=== PATIENT | male | born 1935 | race Caucasian/White ===

== ENCOUNTER → 2017-01-10 | Outpatient (CLI) | payer BC, OTHER ==
[~2017-01-10] MED LIST: ACET-1256 PO; AMLO-114 PO; ASPI-321 OR; ATOR-24 PO; LISI1TAB3 PO; METF1000 PO; METO25TA31 PO; OMEP20TA PO; PRED1SUS OPL; VTMD1000 PO
[2017-01-10 13:39] LABS: ESTIMATED AVERAGE GLUCOSE 140 mg/dl; HA1C FLAG Normal (Normal)
[2017-01-10 13:44] LABS: ALT/SGPT 21 U/L (12-78); AST/SGOT 13 U/L (15-37); BLOOD UREA NITROGEN 16 mg/dl (7-18); BUN/CREATININE RATIO 11.7 (10-20); CARBON DIOXIDE 29 mmol/L (21-32); CHLORIDE 107 mmol/L (98-107); CHOLESTEROL 158 mg/dl (0-200); CHOLESTEROL/HDL RATIO 2.9; GLUCOSE 120 mg/dl (70-99); HDL CHOLESTEROL 55 mg/dl; POTASSIUM 4.4 mmol/L (3.5-5.1); SODIUM 142 mmol/L (136-145)
[2017-01-10 13:46] LABS: ALB/GLOB RATIO 1.1 (0.9-2); ALKALINE PHOSPHATASE 108 U/L (45-117); LDL CHOLESTEROL CALCULATED 75 mg/dl; TRIGLYCERIDES 138 mg/dl (0-150); VERY LOW DENSITY LIPOPROT CALC 28 mg/dl
== END | disposition home or self-care (01) ==
LOC: C.LABPVFM 10:03
PROVIDERS: ATTEND Family Medicine
DX: N18.9 Chronic kidney disease, unspecified (principal); E11.9 Type 2 diabetes mellitus without complications; E78.5 Hyperlipidemia, unspecified

== ENCOUNTER → 2017-03-03 | Outpatient (CLI) | payer BC ==
--- NOTE | 2017-03-03 15:27 | DIAGNOSTIC IMAGING REPORT ---
C-SPINE ROUTINE 4 OR 5 VIEWS CLINICAL HISTORY: Neck pain. Neuropathy. COMPARISON STUDY: No previous studies for comparison. FINDINGS: No acute fractures are visualized. There are advanced multilevel degenerative changes with multilevel disc space narrowing and osteophyte formation. There is minimal anterolisthesis of C4 on C5 which is felt to be degenerative. There is calcification within the ligamentum nuchae. There is bony foraminal encroachment on the right at the C4-5 and C5-6 levels. There is bony foraminal encroachment on the left at the C5-6 and C6-7 levels. IMPRESSION: 1. No acute fractures or traumatic subluxations 2. Advanced multilevel degenerative change Electronically signed by: Dany Bradley M.D. 03/03/2017 3:25 PM Dictated Date/Time: 03/03/2017 3:24 PM
== END | disposition home or self-care (01) ==
LOC: C.RAD 14:36
PROVIDERS: ATTEND Family Medicine
DX: G54.2 Cervical root disorders, not elsewhere classified (principal); M54.2 Cervicalgia

== ENCOUNTER → 2017-07-10 | Outpatient (CLI) | payer BC ==
[2017-07-10 18:24] LABS: ALT/SGPT 13 U/L (12-78); BLOOD UREA NITROGEN 13 mg/dl (7-18); BUN/CREATININE RATIO 9.7 (10-20); CALCIUM 9.2 mg/dl (8.5-10.1); CARBON DIOXIDE 30 mmol/L (21-32); CHLORIDE 107 mmol/L (98-107); CHOLESTEROL 123 mg/dl (0-200); GLUCOSE 103 mg/dl (70-99); POTASSIUM 4.5 mmol/L (3.5-5.1); SODIUM 140 mmol/L (136-145); TRIGLYCERIDES 105 mg/dl (0-150); VERY LOW DENSITY LIPOPROT CALC 21 mg/dl
[2017-07-10 18:27] LABS: ALKALINE PHOSPHATASE 134 U/L (45-117); AST/SGOT 14 U/L (15-37); CHOLESTEROL/HDL RATIO 2.3; HDL CHOLESTEROL 53 mg/dl; LDL CHOLESTEROL CALCULATED 49 mg/dl
[2017-07-11 05:39] LABS: ESTIMATED AVERAGE GLUCOSE 146 mg/dl; HA1C FLAG Normal (Normal)
== END | disposition home or self-care (01) ==
LOC: C.LABPVFM 11:30
PROVIDERS: ATTEND Family Medicine
DX: E78.5 Hyperlipidemia, unspecified (principal); N18.9 Chronic kidney disease, unspecified; E11.9 Type 2 diabetes mellitus without complications

== ENCOUNTER → 2017-12-29 | Outpatient (CLI) | payer BC ==
[2017-12-29 13:01] LABS: HEMOGLOBIN A1C 6.7 % (4.5-5.6)
[2017-12-29 13:14] LABS: ALBUMIN 3.3 gm/dl (3.4-5.0); ALKALINE PHOSPHATASE 127 U/L (45-117); ALT/SGPT 16 U/L (12-78); AST/SGOT 13 U/L (15-37); BLOOD UREA NITROGEN 17 mg/dl (7-18); CALCIUM 9.1 mg/dl (8.5-10.1); CARBON DIOXIDE 28 mmol/L (21-32); CHOLESTEROL 134 mg/dl (0-200); CREATININE 1.56 mg/dl (0.60-1.40); GLUCOSE 123 mg/dl (70-99); LDL CHOLESTEROL CALCULATED 64 mg/dl; SODIUM 140 mmol/L (136-145); TOTAL PROTEIN 6.9 gm/dl (6.4-8.2)
== END | disposition home or self-care (01) ==
LOC: C.LABPVFM 08:06
PROVIDERS: ATTEND Family Medicine
DX: I10 Essential (primary) hypertension (principal); E11.9 Type 2 diabetes mellitus without complications; E78.5 Hyperlipidemia, unspecified

== ENCOUNTER → 2018-05-04 | Outpatient (CLI) | payer BC ==
[~2018-05-04] MED LIST changes: -AMLO-114 PO; +AMLO10TA3 PO; +LISI-863 PO; -LISI1TAB3 PO
[2018-05-04 13:09] LABS: HEMOGLOBIN A1C 6.5 % (4.5-5.6)
[2018-05-04 13:24] LABS: ALBUMIN 3.4 gm/dl (3.4-5.0); ALKALINE PHOSPHATASE 117 U/L (45-117); ALT/SGPT 15 U/L (12-78); AST/SGOT 14 U/L (15-37); BLOOD UREA NITROGEN 16 mg/dl (7-18); CALCIUM 9.3 mg/dl (8.5-10.1); CARBON DIOXIDE 30 mmol/L (21-32); CHOLESTEROL 122 mg/dl (0-200); CREATININE 1.21 mg/dl (0.60-1.40); GLUCOSE 111 mg/dl (70-99); LDL CHOLESTEROL CALCULATED 57 mg/dl; SODIUM 142 mmol/L (136-145); TOTAL PROTEIN 7.1 gm/dl (6.4-8.2)
== END | disposition home or self-care (01) ==
LOC: C.LABPVFM 08:05
PROVIDERS: ATTEND Family Medicine
DX: H61.23 Impacted cerumen, bilateral (principal)

== ENCOUNTER 2020-09-14 20:41 | Inpatient (IN) ==
--- NOTE | 2020-09-14 20:58 | Emergency Department Note ---
Impression & Plan Pneumonia, COPD (chronic obstructive pulmonary disease), Hypoxemia ED Provider Note NAME: МАРИНА DAS AGE: 84 SEX: M : 1935 ARRIVES VIA: Walk-In INFORMANT: Patient, ED PROVIDER(S): Yimi Culp MD Chief Complaint: Weakness, cough, SOB HPI: Patient does present with the above complaints. The patient states that this is been ongoing since the end of August.Patient was seen in the outpatient setting back on September [address] Juares his PCP. Was suspected the patient did have a viral type illness Covid testing was offered but the patient refused. The patient had been not feeling well since August 30 with associated night sweats and a temperature of 102 on September 03. Patient states he has had a productive yellow sputum cough. The patient has had some worsening shortness of breath. Patient does have a known history of COPD and does still smoke a pipe but has not done so in approximately 2 weeks but did smoke a pipe on the way up this evening. The patient did have fevers initially but does state that this has improved. The patient denies any lower extremity swelling. The patient does have pain with cough. Patient states he has had had decreased appetite and p.o. intake. The patient denies any bowel or bladder issues. Patient denies prior history of DVT or PE ROS: See HPI for pertinent positives and negatives. A total of 10 systems were reviewed and otherwise negative. Past medical history: See below Surgical history: See below Social history: See below Physical Exam: GENERAL: Wearing glasses and a mask. EYE EXAM: Normal conjunctiva. PERRL, no anisocoria and EOM's grossly intact w/o pain. NECK: Supple, no nuchal rigidity, no adenopathy, non-tender. No signs of meningismus. LUNGS: Wheezes and crackles throughout. Normal chest wall mechanics. HEART: NSR, no MRG. ABDOMEN: Abdomen soft, non-tender, normo-active bowel sounds, no masses, no rebound or guarding. BACK: No CVA TTP. SKIN: No rashes and no bruising. UPPER EXTREMITIES: Upper extremities are grossly normal. LOWER EXTREMITIES: Grossly normal, no edema. NEURO EXAM: A&O x3, cranial nerves II-XII grossly intact, normal speech, moves all 4 extremities on command w/o issue. Differential diagnoses: Reactive airway disease, pneumonia, pneumothorax, COPD, CHF, infections, cardiac ischemia, pulmonary embolism, musculoskeletal, gastrointestinal, as well as other pathologies. Course: Patient was seen and evaluated the bedside. Full history physical exam was performed. EKG: Indication: Shortness of breath Normal sinus rhythm, rate of 76, wide QRS, right bundle branch block pattern. Imaging Studies: Radiology results as stated below per my review in the radiologist's interpretation: XR chest 1V portable CLINICAL HISTORY: weakness COMPARISON STUDY: 09/19/2009 FINDINGS: The heart is at the upper limits of normal in size. There are bilateral multifocal airspace opacities most pronounced within the left upper lung zone laterally. The findings are consistent with a multifocal pneumonia. Correlation with Covid 19 testing is recommended. There are no significant pleural effusions.[ IMPRESSION: Multifocal airspace opacities consistent with a multifocal pneumonia ACT 112: Negative or not required by law. Electronically signed by: Dany Bradley M.D. 09/15/2020 7:55 AM Dictated: 09/15/20 [id number]: 09/15/20 075 Cardiac monitoring: An order was placed for continuous cardiac monitoring. The monitor shows a rate of 67 with sinus rhythm. MDM: Patient was seen due to concern for shortness of breath and weakness. Blood work is obtained along with a chest x-ray. The patient did have white count of 14 productive cough history of COPD and likely full multifocal pneumonia seen on his x-ray. Patient was ordered additional medications along with treatment staff with his breathing as the patient did become hypoxic at 86%. Patient was placed on 2 L nasal cannula and was comfortable. Covid was negative. At the behest of the lab and inpatient team they recommend getting a quad screen. This was ordered. The patient's was Covid positive. Patient was admitted to the medicine service under Dr. Vargas. Critical Care: I have personally spent 52 minutes of critical care time in direct management of this patient. This includes bedside care, interpretation of diagnostic studies, and testing, discussion with consultants, patient, and family members, and other require inpatient management activities. This 52 minutes is in excess of all separately billable procedures. 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 @ cath 2009 Chronic obstructive pulmonary disease Chronic reflux esophagitis Dyslipidemia Elevated PSA Hypertension Impacted cerumen of both ears Neuropathy, cervical Surgical History History of cataract surgery (2016) bilateral History of tonsillectomy Family History Family/Other Esophageal cancer Hypertension Laryngeal cancer Brother Prostate cancer Father Prostate cancer Denies family history of Ovarian cancer Myocardial infarction Breast cancer Colorectal cancer Social History Smoking Status: Current every day smoker Hx Alcohol Use: No Hx Substance Use: No Preferred Language: Wolof Communication Ability: Effective 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 Verified 09/04/20 09:51 Home Meds Home Medications Medication Instructions Recorded Confirmed aspirin 81 mg tablet 81 mg PO DAILY tab 08/19/19 09/14/20 cholecalciferol (vitamin D3) 50 2,000 units PO DAILY cap 02/28/20 09/14/20 mcg (2,000 unit) capsule omeprazole 20 mg capsule,delayed 20 mg PO DAILY PRN cap 02/28/20 09/14/20 release Previous Rx's Medication Instructions Recorded metformin 1,000 mg tablet 1,000 mg PO BID #60 tab 12/16/19 amlodipine 10 mg tablet 10 mg PO DAILY #30 tab 02/05/20 metoprolol succinate 25 mg 25 mg PO BID #60 tab 02/18/20 tablet,extended release 24 hr losartan 100 1 tab PO DAILY #90 tab 02/28/20 mg-hydrochlorothiazide 25 mg tablet atorvastatin 40 mg tablet 40 mg PO DAILY #30 tab 05/27/20 Results & Data (ED) Vital Signs Vital Signs - 24 hr 09/14/20 20:43 09/14/20 22:49 09/14/20 23:26 Temperature 36.8 C Temperature Source Oral Pulse Rate 99 H Pulse Rate [Apical] 67 Respiratory Rate 18 18 Respiratory Depth Normal Blood Pressure 134/66 Blood Pressure [Left Arm] 161/87 H Blood Pressure Mean 88 Blood Pressure Mean [Left Arm] 111 Blood Pressure Position Lying Pulse Oximetry 90 98 97 Oxygen Delivery Method Room Air Nasal Cannula Nasal Cannula Oxygen Flow Rate 4 4 Sepsis Recent Fever Within 48 Hours No Sepsis New/Unexplained Change in Mental Status No Sepsis Action Taken by Nursing No Action Required Oxygen Flow Rate - Titration 4 Pulse Oximetry Post Tiitration 98 Home Medications Current Medication List: was personally reviewed by me Laboratory Data Attestation: I reviewed the patient's lab results. Result diagrams: 09/14/20 22:35 09/15/20 09:50 Lab Results 09/14/20 09/14/20 09/14/20 Range/Units 22:30 22:30 22:35 WBC 14.97 H (4.8-10.8) K/uL RBC 3.12 L (4.7-6.1) M/uL Hgb 9.7 L (14.0-18.0) g/dL Hct 28.9 L (42-52) % MCV 92.6 (80-100) fL MCH 31.1 (25-34) pg MCHC 33.6 (32-36) g/dL RDW Std Deviation 42.9 (36.4-46.3) fL RDW Coeff of Dean 12.8 (11.5-14.5) % Plt Count 544 H (130-400) K/uL MPV 9.2 (7.4-10.4) fL Immature Gran % (Auto) 0.7 % Neut % (Auto) 85.5 % Lymph % (Auto) 6.1 % [place] % (Auto) 7.5 % Eos % (Auto) 0.0 % Baso % (Auto) 0.2 % Neut # (Auto) 12.80 H (1.4-6.5) K/uL Lymph # (Auto) 0.92 L (1.2-3.4) K/uL [place] # (Auto) 1.12 H (0.11-0.59) K/uL Eos # (Auto) 0.00 (0-0.5) K/uL Baso # (Auto) 0.03 (0-0.2) K/uL Immature Gran # (Auto) 0.10 H (0.00-0.02) K/uL PT (9.0-12.0) Seconds INR (0.9-1.1) Sodium (136-145) mmol/L Potassium (3.5-5.1) mmol/L Chloride (98-107) mmol/L Carbon Dioxide (21-32) mmol/L Anion Gap (3-11) BUN (7-18) mg/dl Creatinine (0.6-1.4) mg/dl Est Cr Clr Drug Dosing ml/min Est GFR ( Amer) Est GFR (Non-Af Amer) BUN/Creatinine Ratio (10-20) Glucose (70-99) mg/dl Calcium (8.5-10.1) mg/dl Total Bilirubin (0.2-1) mg/dl AST (15-37) U/L ALT (12-78) U/L Alkaline Phosphatase (45-117) U/L Troponin I (0-0.045) ng/ml Total Protein (6.4-8.2) gm/dl Albumin (3.4-5.0) gm/dl Globulin (2.5-4.0) gm/dl Albumin/Globulin Ratio (0.9-2) Procalcitonin (0-0.5) ng/ml TSH (0.300-4.500) uIu/ml Specimen Hemolysis COVID-19 Eval Order Covid19 [facility] SARS-CoV-2, RNA, NAAT NEGATIVE (NEGATIVE) 09/14/20 09/14/20 09/14/20 Range/Units 22:35 22:35 22:35 WBC (4.8-10.8) K/uL RBC (4.7-6.1) M/uL Hgb (14.0-18.0) g/dL Hct (42-52) % MCV (80-100) fL MCH (25-34) pg MCHC (32-36) g/dL RDW Std Deviation (36.4-46.3) fL RDW Coeff of Dean (11.5-14.5) % Plt Count (130-400) K/uL MPV (7.4-10.4) fL Immature Gran % (Auto) % Neut % (Auto) % Lymph % (Auto) % [place] % (Auto) % Eos % (Auto) % Baso % (Auto) % Neut # (Auto) (1.4-6.5) K/uL Lymph # (Auto) (1.2-3.4) K/uL [place] # (Auto) (0.11-0.59) K/uL Eos # (Auto) (0-0.5) K/uL Baso # (Auto) (0-0.2) K/uL Immature Gran # (Auto) (0.00-0.02) K/uL PT 12.8 H (9.0-12.0) Seconds INR 1.2 H (0.9-1.1) Sodium 140 (136-145) mmol/L Potassium 3.3 L (3.5-5.1) mmol/L Chloride 105 (98-107) mmol/L Carbon Dioxide 26 (21-32) mmol/L Anion Gap 9.0 (3-11) BUN 32 H (7-18) mg/dl Creatinine 1.64 H (0.6-1.4) mg/dl Est Cr Clr Drug Dosing 29.0 ml/min Est GFR ( Amer) 44.2 Est GFR (Non-Af Amer) 38.1 BUN/Creatinine Ratio 19.3 (10-20) Glucose 137 H (70-99) mg/dl Calcium 8.8 (8.5-10.1) mg/dl Total Bilirubin 0.4 (0.2-1) mg/dl AST 31 (15-37) U/L ALT 17 (12-78) U/L Alkaline Phosphatase 101 (45-117) U/L Troponin I 0.045 (0-0.045) ng/ml Total Protein 7.1 (6.4-8.2) gm/dl Albumin 1.9 L (3.4-5.0) gm/dl Globulin 5.2 H (2.5-4.0) gm/dl Albumin/Globulin Ratio 0.4 L (0.9-2) Procalcitonin 0.37 (0-0.5) ng/ml TSH 0.316 (0.300-4.500) uIu/ml Specimen Hemolysis COVID-19 Eval Order SARS-CoV-2, RNA, NAAT (NEGATIVE) Administered Medications Albuterol (Albuterol Hfa 8 Gm Inhaler (Combivent Respimat P&T Subs)) 1 puffs INH QIDR RAE Stop: 10/15/20 06:59 Last Admin: 09/15/20 15:46 Dose: Not Given Documented by: [id number] Admin: 09/15/20 11:33 Dose: 1 puffs Documented by: [id number] Admin: 09/15/20 07:43 Dose: 1 puffs Documented by: [id number] Amlodipine Besylate (Amlodipine Besylate 5 Mg Tab) 10 mg PO DAILY RAE Stop: 10/15/20 08:59 Last Admin: 09/15/20 08:46 Dose: 10 mg Documented by: [id number] Aspirin (Aspirin 81 Mg Ectab) 81 mg PO DAILY RAE Stop: 10/15/20 08:59 Last Admin: 09/15/20 08:44 Dose: 81 mg Documented by: [id number] Atorvastatin Calcium (Atorvastatin 40 Mg Tab) 40 mg PO DAILY RAE Stop: 10/15/20 08:59 Last Admin: 09/15/20 08:44 Dose: 40 mg Documented by: [id number] Enoxaparin Sodium (Enoxaparin Inj 30 Mg/0.3 Ml Syr) 30 mg SQ Q24H RAE Stop: 10/15/20 07:59 Last Admin: 09/15/20 07:59 Dose: 30 mg Documented by: [id number] Guaifenesin (Guaifenesin 600 Mg Tabcr) 1,200 mg PO Q12 RAE Stop: 10/15/20 08:59 Last Admin: 09/15/20 08:44 Dose: 1,200 mg Documented by: [id number] Lactated Ringer's (Lr) 1,000 mls @ 80 mls/hr IV .[id number] RAE Stop: 09/16/20 04:05 Last Infusion: 09/15/20 14:58 Dose: 0 mls/hr Documented by: [id number] Admin: 09/15/20 04:14 Dose: 80 mls/hr Documented by: [id number] Dexamethasone Sodium Phosphate (6 mg/ Syringe) 1.5 mls @ 1 mls/min IV DAILY RAE Stop: 10/15/20 08:59 Last Admin: 09/15/20 08:43 Dose: 1 mls/min Documented by: [id number] Insulin Aspart (Insulin Aspart 100 Units/Ml 3 Ml Pen) 0 units SC ACHS RAE Stop: 10/15/20 07:29 Last Admin: 09/15/20 11:36 Dose: 12 units Documented by: [id number] Cosigned by: [id number] Admin: 09/15/20 07:45 Dose: 3 units Documented by: [id number] Cosigned by: [id number] Ipratropium [place] (Ipratropium Hfa Inhaler (Combivent Respimat P&T Subs)) 1 puffs INH QIDR RAE Stop: 10/15/20 06:59 Last Admin: 09/15/20 15:46 Dose: Not Given Documented by: [id number] Admin: 09/15/20 11:32 Dose: 1 puffs Documented by: [id number] Admin: 09/15/20 07:43 Dose: 1 puffs Documented by: [id number] Metoprolol Succinate (Metoprolol Succ 25mg Ext Rel Tab) 25 mg PO BID RAE Stop: 10/15/20 08:59 Last Admin: 09/15/20 08:45 Dose: 25 mg Documented by: [id number] Vitamin D (Cholecalciferol 1,000 Units 25 Mcg Tab) 2,000 units PO DAILY RAE Stop: 10/15/20 08:59 Last Admin: 09/15/20 08:46 Dose: 2,000 units Documented by: [id number] Discontinued Medications Acetaminophen (Acetaminophen 325 Mg Tab) 650 mg PO NOW STA Stop: 09/14/20 21:04 Last Admin: 09/14/20 22:48 Dose: 650 mg Documented by: [id number] Azithromycin (Azithromycin 250 Mg Tab) 500 mg PO NOW ONE Stop: 09/14/20 23:24 Last Admin: 09/15/20 01:00 Dose: 500 mg Documented by: [id number] Sodium Chloride (Nss) 500 mls @ 999 mls/hr IV .Q31M RAE Stop: 09/14/20 21:45 Last Infusion: 09/15/20 02:36 Dose: 0 mls/hr Documented by: [id number] Admin: 09/14/20 22:48 Dose: 999 mls/hr Documented by: [id number] Ceftriaxone Sodium (Rocephin) 2,000 mg in 70 mls @ 140 mls/hr IV NOW STA Stop: 09/14/20 23:52 Last Infusion: 09/15/20 02:37 Dose: 0 mls/hr Documented by: [id number] Admin: 09/15/20 00:30 Dose: 140 mls/hr Documented by: [id number] Magnesium Sulfate/Dextrose (Magnesium Sulfate / D5w) 1 gm in 100 mls @ 200 mls/hr IV NOW STA Stop: 09/14/20 23:53 Last Infusion: 09/15/20 03:04 Dose: 0 mls/hr Documented by: [id number] Admin: 09/15/20 02:30 Dose: 200 mls/hr Documented by: [id number] Insulin Human NPH (Insulin Human Nph) 20 units SC NOW STA Stop: 09/15/20 13:48 Last Admin: 09/15/20 14:31 Dose: 20 units Documented by: [id number] Cosigned by: [id number] Ioversol (Optiray 320 125ml) 119 ml IV ONCE ONE Stop: 09/15/20 15:39 Last Admin: 09/15/20 15:39 Dose: 119 ml Documented by: [id number] Methylprednisolone (Methylprednisolone 125 Mg/2 Ml Vial) 60 mg IV NOW STA Stop: 09/14/20 23:24 Last Admin: 09/15/20 01:00 Dose: 60 mg Documented by: [id number] Miscellaneous Information (Pharmacy Glycemic Mgmt Consult) 1 ea N/A NOW STA; Protocol Stop: 09/15/20 11:05 Last Admin: 09/15/20 11:48 Dose: 1 ea Documented by: [id number] Potassium Chloride (Potassium Chloride Crtab 20 Meq Tabcr) 20 meq PO NOW STA Stop: 09/15/20 03:07 Last Admin: 09/15/20 04:14 Dose: 20 meq Documented by: [id number] Discharge Plan Visit Data Chief Complaint: Shortness of Breath/Dyspnea Stated Complaint: SOB, LOSS OF TASTE/SMELL, FEVER ED Provider: Yimi Culp Discharge Problem: Pneumonia, COPD (chronic obstructive pulmonary disease), Hypoxemia Patient Disposition: Admitted As Inpatient Discharge Instructions Interventions: ED Discharge Assessment Last Done: 09/15/20 12:19 Discharge Problem: Pneumonia Qualifiers: Pneumonia type: due to unspecified organism Laterality: bilateral Lung location: unspecified part of lung Qualified Code(s): J18.9 - Pneumonia, unspecified organism COPD (chronic obstructive pulmonary disease) Qualifiers: COPD type: COPD with acute exacerbation Qualified Code(s): J44.1 - Chronic obst ructive pulmonary disease with (acute) exacerbation
[2020-09-14] MEDS ORDERED: ACETAMINOPHEN 325 MG TAB PO STA (21:03)
[2020-09-14] MEDS ORDERED: SODIUM CHLORIDE 0.9% 500 ML IV SCH (21:15)
[2020-09-14 22:58] LABS: Basophils # (auto) 0.03 K/uL (0-0.2); Basophils % (auto) 0.2 %; Hematocrit (blood only) 28.9 % (42-52); Hemoglobin 9.7 g/dL (14.0-18.0); Immature Granulocytes % (auto) 0.7 %; Lymphocytes # (auto) 0.92 K/uL (1.2-3.4); Lymphocytes % (auto) 6.1 %; Mean Corpuscular Hemoglobin 31.1 pg (25-34); Mean Corpuscular Hgb Conc 33.6 g/dL (32-36); Mean Corpuscular Volume 92.6 fL (80-100); Mean Platelet Volume 9.2 fL (7.4-10.4); Monocytes # (auto) 1.12 K/uL (0.11-0.59); Monocytes % (auto) 7.5 %; Neutrophils % (auto) 85.5 %; Platelet Count 544 K/uL (130-400); RDW Coefficient of Variation 12.8 % (11.5-14.5); RDW Standard Deviation 42.9 fL (36.4-46.3); Red Blood Count 3.12 M/uL (4.7-6.1); White Blood Count 14.97 K/uL (4.8-10.8)
[2020-09-14 23:07] LABS: INR 1.2 (0.9-1.1); Prothrombin Time 12.8 Seconds (9.0-12.0)
[2020-09-14 23:16] LABS: Albumin Level 1.9 gm/dl (3.4-5.0); BUN Creatinine Ratio 19.3 (10-20); Calcium 8.8 mg/dl (8.5-10.1); Est GFR (African American) 44.2; Est GFR (Non-African American) 38.1; Potassium 3.3 mmol/L (3.5-5.1)
[2020-09-14] MEDS ORDERED: AZITHROMYCIN 250 MG TAB PO ONE (23:23)
[2020-09-14] MEDS ORDERED: methylPREDNISolone 125 MG/2 ML VIAL IV STA (23:23)
[2020-09-14] MEDS ORDERED: cefTRIAXone SODIUM 2,000 MG/70 ML BAG IV STA (23:23)
[2020-09-14] MEDS ORDERED: MAGNESIUM SULFATE / D5W 1 GM/100 ML BAG IV STA (23:24)
[2020-09-14 23:29] LABS: Albumin Globulin Ratio 0.4 (0.9-2); Bilirubin,Total 0.4 mg/dl (0.2-1); Globulin 5.2 gm/dl (2.5-4.0); Thyroid Stimulating Hormone 0.316 uIu/ml (0.300-4.500); Total Protein 7.1 gm/dl (6.4-8.2); Troponin I 0.045 ng/ml (0-0.045)
--- NOTE | 2020-09-15 01:10 | History & Physical Report ---
Date of Service September 15, 2020 Assessment & Plan (1) COVID-19: 84yo C male presenting with 2-3 weeks of weakness/fatigue and SOB as well as loss of taste and smell. Patient's is in the ER with similar complaints and has tested positive for Covid-19. Patient's SARS-CoV-2 rapid antigen test as performed in the ER was found to be NEGATIVE. However, have strong suspicion for Covid-19. Age, male gender and presence of underlying comorbidities raise concern for development of severe disease. Patient with leukocytosis - WBC=14.9, Lymphopenia, elevated platelets at 544 - acute phase reactant -Repeat testing sent - Quadrivalent PCR testing with RSV, Influenza A and B as well as SARS-CoV-2 - awaiting results -Admit to medical floor -Maintain isolation precautions for now - Airborne and Contact -Supplemental O2 as needed to maintain saturation of 90% - patient with COPD -Check inflammatory markers - ESR, CRP, Ferritin, Ddimer -Check Procalcitonin -?presence of bacterial infection as well given duration of symptoms, elevated WBC count at 14.97, ?LLL infiltrate -Continue home Vitamin D supplementation -Dexamethasone 6mg IV daily -Tylenol PRN -Possible PNA as well -Check procalcitonin -Azithromycin 500mg IV daily -Ceftriaxone 1gm IV daily Present on Admission?: Yes (2) Hypertension: Blood pressure mildly elevated at 161/87. Patient reports he has not taken his medications for several days as he has been feeling ill -Continue Amlodipine 10mg po daily -Hold Losartan/HCTZ for now as patient appears somewhat dry on exam -Continue Metoprolol 25mg po BID -Continue to monitor BP Present on Admission?: Yes (3) Dyslipidemia: Chronic. Stable -Continue Atorvastatin 40mg po daily Present on Admission?: Yes (4) Chronic obstructive pulmonary disease: Patient had spirometry performed in 2009 which showed mild obstructive airway disease with slight improvement after bronchodilators -Combivent Respimat QID -Albuterol PRN -Flutter valve -Supplemental O2 as needed to maintain saturations 90% Present on Admission?: Yes (5) CAD (coronary artery disease): Chronic. Stable. Patient denies chest pain -Continue ASA, Atorvastatin, Metoprolol -Holding Losartan for now -Trend troponin q 8hours x 3 sets - first one detectable at 0.045 Present on Admission?: Yes (6) Diabetes mellitus: Chronic. Last RarE7Y=2.9 on 05/07/20. Hexepnm=157 -Hold Metformin -ISS -BSG check qACHS Present on Admission?: Yes (7) Abnormal kidney function: Elevated BUN above baseline - suspect acute dehydration. Cr near baseline -IVF as below -Repeat chemistry panel in AM -Avoid nephrotoxic agents -Renal dosing where needed Present on Admission?: Yes (8) Anemia: Patient with normochromic, normocytic anemia with Hgb=9.7, Hct=28.9. No prior values available for comparison. -Check iron studies -Follow F/E/N - LR at 80mL/hr x 2 liters, K repletion, repeat labs in AM, CC diet as tolerated Ppx - Lovenox 30mg BID Code - DNR/DNI per discussion with patient Dispo - Admit to medical/Covid precautions for now Present on Admission?: Yes History of Present Illness Chief Complaint: SOB Primary Care Provider: Britney Orantes MD Taras Stevens is an 84yo C male with history of CKD, HTN, HLP, GERD presenting with complaint of 2-3 weeks of progressive SOB as well as fatigue, loss of appetite and nausea. Patient also with loss of taste and smell. Symptoms ongoing for at least 2 weeks. No additional complaints at this time. Upon arrival to the ER patient was hypoxic at 86% on room air. He was placed on supplemental O2 with improvement in saturation - presently 97% on 4L Patient's is in the ER at this time as well with similar symptoms and has tested positive for Covid-19. Patient's rapid antigen test performed in the ER is NEGATIVE. ER Course: NSS x 500mL, Tylenol. He is ordered to receive Azithromycin 500mg po, Ceftriaxone 2gm IV, Magnesium x 1gm and Solumedrol 60mg IV Allergies Allergy/AdvReac Type Severity Reaction Status Date / Time No Known Allergies Allergy Unknown . Verified 09/04/20 09:51 Home Medications Medication Instructions Recorded Confirmed Type aspirin 81 mg tablet 81 mg PO DAILY tab 08/19/19 09/14/20 History metformin 1,000 mg tablet 1,000 mg PO BID #60 tab 12/16/19 09/14/20 Rx amlodipine 10 mg tablet 10 mg PO DAILY #30 tab 05/06/20 12/14/20 Rx metoprolol succinate 25 mg 25 mg PO BID #60 tab 02/18/20 09/14/20 Rx tablet,extended release 24 hr cholecalciferol (vitamin D3) 50 2,000 units PO DAILY cap 02/28/20 09/14/20 History mcg (2,000 unit) capsule losartan 100 1 tab PO DAILY #90 tab 02/28/20 09/14/20 Rx mg-hydrochlorothiazide 25 mg tablet omeprazole 20 mg capsule,delayed 20 mg PO DAILY PRN cap 02/28/20 09/14/20 History release atorvastatin 40 mg tablet 40 mg PO DAILY #30 tab 05/27/20 09/14/20 Rx 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 @ cath 2009 Chronic obstructive pulmonary disease Chronic reflux esophagitis Dyslipidemia Elevated PSA Hypertension Impacted cerumen of both ears Neuropathy, cervical Surgical History History of cataract surgery (2015) bilateral History of tonsillectomy Family History Family/Other Esophageal cancer Hypertension Laryngeal cancer Brother Prostate cancer Father Prostate cancer Denies family history of Ovarian cancer Myocardial infarction Breast cancer Colorectal cancer Social History Smoking Status: Current every day smoker Hx Alcohol Use: No Hx Substance Use: No marital status: Current Living Situation: Spouse current occupational status: retired Feels Safe at Home: Yes caffeine: Yes Dental Care, Regularly: No Physical Activity Frequency: Does not Exercise Seatbelt Use: always Sunscreen Use: No Review of Systems Review of Systems: All systems reviewed & are unremarkable except as noted in HPI & below Physical Exam Physical Exam: General: frail, elderly male patient resting comfortably, NAD, non-toxic in appearance, hard of hearing Skin: warm, dry, intact, no rashes or lesions HEENT: NC/AT, PERRL, EOMI, anicteric sclera, conjunctiva without injection, external ear normal to inspection and nontender, nares patent, dry mucus membranes, dentition intact, no oropharyngeal lesions, neck supple, trachea midline, no LAD, no thyromegaly, no JVD Heart: +S1/S2, regular, no m/r/g Abd: +BS, soft, NT/ND, no masses/organomegaly/ascites Ext: warm, 2+ pulses in UE/LE bilaterally, no clubbing/cyanosis or edema Neuro: nonfocal, speech intact, no facial droop, moving all extremities on command with equal strength 5/5 Results & Data Results & Data ([facility]) Vital Signs (Past 12 Hours) Vital Signs Temp Pulse Pulse Resp BP BP Pulse Ox 09/14/20 23:26 67 18 161/87 H 97 09/14/20 22:49 98 09/14/20 20:43 36.8 C 99 H 18 134/66 90 Laboratory Results Lab Results 09/14/20 09/14/20 09/14/20 Range/Units 22:30 22:30 22:35 WBC 14.97 H (4.8-10.8) K/uL RBC 3.12 L (4.7-6.1) M/uL Hgb 9.7 L (14.0-18.0) g/dL Hct 28.9 L (42-52) % MCV 92.6 (80-100) fL MCH 31.1 (25-34) pg MCHC 33.6 (32-36) g/dL RDW Std Deviation 42.9 (36.4-46.3) fL RDW Coeff of Dean 12.8 (11.5-14.5) % Plt Count 544 H (130-400) K/uL MPV 9.2 (7.4-10.4) fL Immature Gran % (Auto) 0.7 % Neut % (Auto) 85.5 % Lymph % (Auto) 6.1 % [place] % (Auto) 7.5 % Eos % (Auto) 0.0 % Baso % (Auto) 0.2 % Neut # (Auto) 12.80 H (1.4-6.5) K/uL Lymph # (Auto) 0.92 L (1.2-3.4) K/uL [place] # (Auto) 1.12 H (0.11-0.59) K/uL Eos # (Auto) 0.00 (0-0.5) K/uL Baso # (Auto) 0.03 (0-0.2) K/uL Immature Gran # (Auto) 0.10 H (0.00-0.02) K/uL PT (9.0-12.0) Seconds INR (0.9-1.1) Sodium (136-145) mmol/L Potassium (3.5-5.1) mmol/L Chloride (98-107) mmol/L Carbon Dioxide (21-32) mmol/L Anion Gap (3-11) BUN (7-18) mg/dl Creatinine (0.6-1.4) mg/dl Est Cr Clr Drug Dosing ml/min Est GFR ( Amer) Est GFR (Non-Af Amer) BUN/Creatinine Ratio (10-20) Glucose (70-99) mg/dl Calcium (8.5-10.1) mg/dl Total Bilirubin (0.2-1) mg/dl AST (15-37) U/L ALT (12-78) U/L Alkaline Phosphatase (45-117) U/L Troponin I (0-0.045) ng/ml Total Protein (6.4-8.2) gm/dl Albumin (3.4-5.0) gm/dl Globulin (2.5-4.0) gm/dl Albumin/Globulin Ratio (0.9-2) TSH (0.300-4.500) uIu/ml Specimen Hemolysis COVID-19 [facility] SARS-CoV-2, RNA, NAAT NEGATIVE (NEGATIVE) 09/14/20 09/14/20 Range/Units 22:35 22:35 WBC (4.8-10.8) K/uL RBC (4.7-6.1) M/uL Hgb (14.0-18.0) g/dL Hct (42-52) % MCV (80-100) fL MCH (25-34) pg MCHC (32-36) g/dL RDW Std Deviation (36.4-46.3) fL RDW Coeff of Dean (11.5-14.5) % Plt Count (130-400) K/uL MPV (7.4-10.4) fL Immature Gran % (Auto) % Neut % (Auto) % Lymph % (Auto) % [place] % (Auto) % Eos % (Auto) % Baso % (Auto) % Neut # (Auto) (1.4-6.5) K/uL Lymph # (Auto) (1.2-3.4) K/uL [place] # (Auto) (0.11-0.59) K/uL Eos # (Auto) (0-0.5) K/uL Baso # (Auto) (0-0.2) K/uL Immature Gran # (Auto) (0.00-0.02) K/uL PT 12.8 H (9.0-12.0) Seconds INR 1.2 H (0.9-1.1) Sodium 140 (136-145) mmol/L Potassium 3.3 L (3.5-5.1) mmol/L Chloride 105 (98-107) mmol/L Carbon Dioxide 26 (21-32) mmol/L Anion Gap 9.0 (3-11) BUN 32 H (7-18) mg/dl Creatinine 1.64 H (0.6-1.4) mg/dl Est Cr Clr Drug Dosing 29.0 ml/min Est GFR ( Amer) 44.2 Est GFR (Non-Af Amer) 38.1 BUN/Creatinine Ratio 19.3 (10-20) Glucose 137 H (70-99) mg/dl Calcium 8.8 (8.5-10.1) mg/dl Total Bilirubin 0.4 (0.2-1) mg/dl AST 31 (15-37) U/L ALT 17 (12-78) U/L Alkaline Phosphatase 101 (45-117) U/L Troponin I 0.045 (0-0.045) ng/ml Total Protein 7.1 (6.4-8.2) gm/dl Albumin 1.9 L (3.4-5.0) gm/dl Globulin 5.2 H (2.5-4.0) gm/dl Albumin/Globulin Ratio 0.4 L (0.9-2) TSH 0.316 (0.300-4.500) uIu/ml Specimen Hemolysis COVID-19 Eval Order SARS-CoV-2, RNA, NAAT (NEGATIVE) Diagnostic Findings CXR awaiting final read - by my interpretation - trachea is midline, normal cardiac shadow - ?COPD changes with hyperlucency, flattened diaphragms, increased pulmonary markings, ?fibrosis as well as bilateral airspace opacities most in left lung, ?developing LLL consolidation ECG Additional Comments: EKG wtih NSR at 76, RBBB, LAFB Code Status & VTE Plan VTE Prophylaxis Plan VTE Prophylaxis will be ordered: Yes PG Care Time/CCT Total # of Minutes Spent Total Time Spent with Patient: Total time spent is greater than 50% in coordination of care (as documented) at patient's floor/unit and/or counseling patient: Coding Level of Care Code 44404 Initial Inpt Care Lvl 3 Diagnoses COVID-19 U07.1 Hypertension I10 Hypertension type: essential hypertension Dyslipidemia E78.5 Chronic obstructive pulmonary disease J44.9 COPD type: unspecified COPD CAD (coronary artery disease) I25.10 Coronary Disease-Associated Artery/Lesion type: [place] artery [place] vs. transplanted heart: [place] heart Associated angina: without angina Diabetes mellitus E11.9 Diabetes mellitus type: type 2 Diabetes mellitus termination clerk insulin use: without termination clerk use Diabetes mellitus complication status: without complication Abnormal kidney function N28.9 Anemia D64.9 Anemia type: unspecified type (1) Hypertension Hypertension type: essential hypertension Qualified Code(s): I10 - Essential (primary) hypertension (2) Chronic obstructive pulmonary disease COPD type: unspecified COPD Qualified Code(s): J44.9 - Chronic obstructive pulmonary disease, unspecified (3) CAD (coronary artery disease) Coronary Disease-Associated Artery/Lesion type: [place] artery [place] vs. transplanted heart: [place] heart Associated angina: without angina Qualified Code(s): I25.10 - Atherosclerotic heart disease of [place] coronary artery without angina pectoris (4) Diabetes mellitus Diabetes mellitus type: type 2 Diabetes mellitus fdc insulin use: without fdc use Diabetes mellitus complication status: without complication Qualified Code(s): E11.9 - Type 2 diabetes mellitus without c omplications (5) Anemia Anemia type: unspecified type Qualified Code(s): D64.9 - Anemia, unspecified
[2020-09-15 01:24] LABS: Influenza A virus by PCR Negative (Neg); Influenza B virus by PCR Negative (Neg); RSV by PCR Negative (Neg); SARS CoV2 RNA(COVID-19) InHosp NEGATIVE (Negative)
[2020-09-15] MEDS ORDERED: CARBOHYDRATES FOR HYPOGLYCEMIA PO PRN ×2 (03:06→11:04)
[2020-09-15] MEDS ORDERED: GLUCOSE 10 TABS/TUBE PO PRN ×2 (03:06→11:04)
[2020-09-15] MEDS ORDERED: GLUCOSE 40% GEL 15 GM TUBE PO PRN ×2 (03:06→11:04)
[2020-09-15] MEDS ORDERED: POTASSIUM CHLORIDE CRTAB 20 MEQ TABCR PO STA (03:06)
[2020-09-15] MEDS ORDERED: ALBUTEROL HFA 8 GM INHALER INH PRN (03:06)
[2020-09-15] MEDS ORDERED: GLUCAGON FOR INJ 1 MG VIAL SQ PRN ×2 (03:06→11:04)
[2020-09-15] MEDS ORDERED: DEXTROSE 50% 50 ML SYRINGE IV PRN ×2 (03:06→11:04)
[2020-09-15] MEDS: LACTATED RINGER'S 1,000 ML IV SCH (04:14)
[2020-09-15 06:07] LABS: C Reactive Protein 12.5 mg/dl (0-0.29); Ferritin 188.6 ng/ml (8-388); Phosphorus 3.9 mg/dl (2.5-4.9)
[2020-09-15 06:09] LABS: D Dimer 7530 ug/L FEU (0-500)
[2020-09-15] MEDS: Albuterol HFA 8 GM Inhaler (Combivent Respimat P&T Subs) INH SCH ×4 (07:43→19:55)
[2020-09-15] MEDS: Ipratropium HFA Inhaler (Combivent Respimat P&T Subs) INH SCH ×4 (07:43→19:55)
[2020-09-15] MEDS: INSULIN ASPART 100 UNITS/ML 3 ML PEN SC SCH ×4 (07:45→21:10)
--- NOTE | 2020-09-15 07:56 | XRay Report ---
XR chest 1V portable CLINICAL HISTORY: weakness COMPARISON STUDY: 09/19/2009 FINDINGS: The heart is at the upper limits of normal in size. There are bilateral multifocal airspace opacities most pronounced within the left upper lung zone laterally. The findings are consistent wit h a multifocal pneumonia. Correlation with Covid 19 testing is recommended. There are no significant pleural effusions.[ IMPRESSION: Multifocal airspace opacities consistent with a multifocal pneumonia ACT 112: Negative or not required by law. Electronically signed by: Dany Bradley M.D. 09/15/2020 7:55 AM
[2020-09-15] MEDS: ENOXAPARIN INJ 30 MG/0.3 ML SYR SQ SCH (07:59)
[2020-09-15] MEDS: DEXAMETHASONE SOD PHOSPHATE 6 MG in SYRINGE 0 ML IV SCH (08:43)
[2020-09-15] MEDS: ATORVASTATIN 40 MG TAB PO SCH (08:44)
[2020-09-15] MEDS: guaiFENesin 600 MG TABCR PO SCH ×2 (08:44→21:49)
[2020-09-15] MEDS: ASPIRIN 81 MG ECTAB PO SCH (08:44)
[2020-09-15] MEDS: METOPROLOL SUCC 25MG EXT REL TAB PO SCH ×2 (08:45→21:49)
[2020-09-15] MEDS: amLODIPine BESYLATE 5 MG TAB PO SCH (08:46)
[2020-09-15] MEDS: CHOLECALCIFEROL 1,000 UNITS 25 MCG TAB PO SCH (08:46)
[2020-09-15] MEDS ORDERED: IPRATROPIUM BROMIDE/ALBUTEROL respimat INH INH SCH (09:00)
[2020-09-15] MEDS ORDERED: DEXAMETHASONE SOD INJ 10 MG/ML VIAL IV SCH (09:00)
--- NOTE | 2020-09-15 09:04 | Hospitalist Progress Note ---
Date of Service September 15, 2020 Assessment & Plan (1) COVID-19: 84yo C male presenting with 2-3 weeks of weakness/fatigue and SOB as well as loss of taste and smell. Patient's is in the ER with similar complaints and has tested positive for Covid-19. Patient's SARS-CoV-2 rapid antigen test as performed in the ER was found to be NEGATIVE. repeat covid flu and rsv pcr negative airborne precautions -Supplemental O2 as needed to maintain saturation of 90% - patient with COPD -elevated inflammatory markers - ESR, CRP, Ferritin, Ddimer -normal Procalcitonin - -Dexamethasone 6mg IV daily -Azithromycin 500mg IV daily -Ceftriaxone 1gm IV daily CTA shows pneumonia but not PE (2) Hypertension: Blood pressure mildly elevated -Continue Amlodipine 10mg po daily -Hold Losartan/HCTZ for now as patient appears somewhat dry on exam -Continue Metoprolol 25mg po BID (3) Dyslipidemia: Chronic. Stable -Continue Atorvastatin 40mg po daily (4) Chronic obstructive pulmonary disease: Patient had spirometry performed in 2009 which showed mild obstructive airway disease with slight improvement after bronchodilators -Combivent Respimat QID -Albuterol PRN -Flutter valve -Supplemental O2 as needed to maintain saturations 90% (5) CAD (coronary artery disease): Chronic. Stable. Patient denies chest pain -Continue ASA, Atorvastatin, Metoprolol -Holding Losartan for now -troponin negativ ex 2 (6) Diabetes mellitus: Chronic. Last QshB7D=5.9 on 05/07/20. Miiumpy=091 -Hold Metformin -ISS -BSG check qACHS (7) Abnormal kidney function: Elevated BUN above baseline - suspect acute dehydration. Cr near baseline -follow after iv contrast (8) Anemia: Patient with normochromic, normocytic anemia with Hgb=9.7, Hct=28.9. No prior values available for comparison. - iron studies iron low tibc low Ppx - Lovenox prophylactic as normal CTA Code - DNR/DNI per discussion with patient Admission and Anticipated Discharge Date Admission Date: September 15, 2020 Subjective pt has some sob and cough, CT was negative for PE and confirms pneumonia. Review of Systems Review of Systems: Mild distress and fatigue no headache, blurry or double vision no speech or swallowing issues no chest pain, pressure or palpitations shortness of breath, non productive cough or wheezes no abdominal pain, nausea or vomiting, diarrhea or constipation no dysuria, hematuria or frequency no focal joint pain or swelling no back pain, CVA tenderness or radicular pain no bruising, bleeding or rashes no focal signs of weakness or numbness or altered sensation no complaints of anxiety or depression.. Physical Exam Physical Exam: The patient appeared thin and in mild distress Vital signs as documented. Head exam is normocephalic atraumatic no scleral icterus Neck is without JVD, thyromegaly, or carotid bruits. Lungs are clear to auscultation, no focal loss of breath sounds Cardiac exam, Rhythm is regular.. mónica Abdominal exam reveals normal bowel sounds, soft non tender, no masses Extremities are nonedematous and both pedal pulses are present Neurologic exam is alert and oriented, no focal loss of strength or sensation Skin is without bruises or rashes Psychologically is without concerns for anxiety or depression. Results & Data Results & Data ([facility]) Vital Signs (Past 12 Hours) Vital Signs Temp Pulse Resp BP Pulse Ox 09/15/20 07:43 71 20 95 09/15/20 07:19 98.1 F 59 L 18 168/75 H 96 09/15/20 06:15 68 20 165/76 H 98 09/15/20 04:15 68 20 158/78 H 98 09/15/20 03:42 98.1 F 73 16 154/71 H 95 09/15/20 02:30 82 20 94 09/14/20 23:26 67 18 161/87 H 97 09/14/20 22:49 98 PG Care Time/CCT Total # of Minutes Spent Total Time Spent with Patient: Total time spent is greater than 50% in coordination of care (as documented) at patient's floor/unit and/or counseling patient: Coding Level of Care Code None Diagnoses COVID-19 U07.1 Hypertension I10 Hypertension type: essential hypertension Dyslipidemia E78.5 Chronic obstructive pulmonary disease J44.9 COPD type: unspecified COPD CAD (coronary artery disease) I25.10 Associated angina: without angina Coronary Disease-Associated Artery/Lesion type: [place] artery [place] vs. transplanted heart: [place] heart Diabetes mellitus E11.9 Diabetes mellitus complication status: without complication Diabetes mellitus fci insulin use: without fci use Diabetes mellitus type: type 2 Abnormal kidney function N28.9 Anemia D64.9 Anemia type: unspecified type (1) Diabetes mellitus Diabetes mellitus complication status: without complication Diabetes mellitus fci insulin use: without fci use Diabetes mellitus type: type 2 Qualified Code(s): E11.9 - Type 2 diabetes mellitus without complications (2) CAD (coronary artery disease) Associated angina: without angina Coronary Disease-Associated Artery/Lesion type: [place] artery [place] vs. transplanted heart: [place] heart Qualified Code(s): I25.10 - Atherosclerotic heart disease of [place] coronary artery without angina pectoris (3) Anemia Anemia type: unspecified type Qualified Code(s): D64.9 - Anemia, unspecified (4) Chronic obstructive pulmonary disease COPD type: unspecified COPD Qualified Code(s): J44.9 - Chronic obstructive pulmonary disease, unspecified (5) Hypertension Hypertension type: essential hypertension Qualified Code(s): I10 - Essential (primary) hypertension
[2020-09-15 10:21] LABS: BUN Creatinine Ratio 20.4 (10-20); Creatinine Clr Calc Pharmacy 29.4 ml/min; Est GFR (African American) 44.8; Est GFR (Non-African American) 38.7; Magnesium 1.9 mg/dl (1.8-2.4); Potassium 3.5 mmol/L (3.5-5.1)
[2020-09-15 10:31] LABS: Beta-Hydroxybutyrate 1.38 mg/dl (0.2-2.81)
[2020-09-15] MEDS ORDERED: PHARMACY GLYCEMIC MGMT CONSULT STA (11:04)
[2020-09-15] MEDS ORDERED: INSULIN ASPART 100 UNITS/ML 3 ML PEN SC SCH (11:30)
[2020-09-15] MEDS ORDERED: PHARMACY GLYCEMIC MGMT CONSULT PRN (12:15)
[2020-09-15] MEDS ORDERED: INSULIN GLARGINE SOLOSTAR 100 UNITS/ML 3 ML PEN SC STA (13:29)
[2020-09-15] MEDS ORDERED: INSULIN HUMAN NPH SC STA (13:47)
--- NOTE | 2020-09-15 14:27 | Pharmacy Report ---
Pharmacy Glycemic Short Note 2 - Date of Service September 15, 2020 - Glycemic Short BSG Results (Last 24 hours): 09/14/20 09/15/20 09/15/20 22:35 05:34 07:10 Glucose 137 H POC Glucose 239 H 217 H 09/15/20 09/15/20 09:50 11:09 Glucose 332 H* POC Glucose 338 H* OUTPATIENT ANTIDIABETIC REGIMEN: * metformin 1000mg BID * A1c:6.9% 05/07/20 ASSESSMENT: * Patient well controlled as an outpatient with metformin only now presenting with suspicions of COVID * Patient's BSG well into the 300s by time of consult. Will order a one time NPH dose now, and plan to continue daily NPH will on steroids. Will utilize an aggressive novolog scale. * Patient is ordered dexamethasone and is tolerating a diet PLAN FOR INPATIENT GLYCEMIC CONTROL: * Hold outpatient oral diabetes medications * Basal insulin * NPH 20 units SQ X 1 * Bolus insulin * NovoLog per scale ACHS or Q6hrs while NPO * Goal Range: Low 110 mg/dL - High 150 mg/dL * Correction Factor: 25 mg/dL/unit * Nutritional / Prandial insulin per carb ratio of 1 unit per 8 grams CHO consumed
[2020-09-15 14:45] LABS: Appearance Urine Clear (Clear); Bacteria Urine Automated Negative (Negative); Bilirubin Urine Negative (Negative); Blood Urine Negative (Negative); Color Urine Yellow; Glucose Urine UA 2+ (Negative); Ketones Urine Negative (Negative); Leukocyte Esterase Urine Negative (Negative); Nitrite Urine Negative (Negative); Protein Urine 1+ (Negative); RBC Urine Automated 0-4 /hpf (0-4); Specific Gravity Urine 1.023 (1.000-1.030); Urobilinogen Urine Negative (Negative)
[2020-09-15] MEDS ORDERED: OPTIRAY 320 125ml IV ONE (15:38)
--- NOTE | 2020-09-15 15:54 | CT Scan Report ---
CT ANGIOGRAM OF THE CHEST CLINICAL HISTORY: Dyspnea. COMPARISON STUDY: Chest x-ray dated 09/14/2020. TECHNIQUE: Following the IV administration of 119 cc of Optiray 320, CT angiogram of the chest was pe rformed from the upper abdomen to the thoracic inlet utilizing the pulmonary embolus protocol. Images are reviewed in the axial, sagittal, and coronal planes. 3-D MIPS images are created and assessed. I V contrast was administered without complication. A dose lowering technique was utilized adhering to the principles of ALARA. CT DOSE: 372.37 mGycm FINDINGS: Thyroid: Imaged portions of the thyroid gland are normal in size and attenuation. Thoracic aorta: There is atherosclerotic calcification of the thoracic aorta, which is normal in [place] and demonstrates standard 3-vessel arch anatomy. No dissection is seen. Pulmonary vasculature: The pulmonary trunk is normal in caliber. There are no filling defects identif ied in main, lobar, or segmental pulmonary branches to suggest pulmonary embolus. Heart: The heart is enlarged and without pericardial effusion. The coronary arteries are densely calc ified. Lungs and pleural spaces: Advanced and edematous change is identified. Multifocal airspace consolidat ion is seen throughout both lungs, most confluent in the left upper lobe. Mediastinum: A 2.1 cm simple cystic lesion is in the anterior mediastinum is likely of thymic origin. There are numerous subcentimeter mediastinal lymph nodes. Scarlet: There are prominent hilar lymph nodes, likely reactive. Axillae: There is no axillary lymphadenopathy. Upper abdomen: Partially visualized upper abdominal viscera is within normal limits. Skeletal structures: The skeletal structures are osteopenic. Degenerative change is noted in the shou lders and thoracic spine. No lytic or blastic bony lesions are seen. IMPRESSION: 1. There is no evidence of pulmonary embolus in the main, lobar, or segmental pulmonary arteries. 2. Cardiomegaly and emphysema. 3. Multifocal airspace consolidation is typical for pneumonia. Clinical correlation will be required and radiographic follow-up to resolution is recommended. 4. Additional findings as above. ACT 112: Negative or not required by law. Electronically signed by: Gio Ying M.D. 09/15/2020 3:53 PM
[2020-09-15] MEDS: AZITHROMYCIN 500 MG in DEXTROSE 5% 250 ML IV SCH (21:49)
[2020-09-16] MEDS: cefTRIAXone SODIUM 1,000 MG in DEXTROSE 5% 50 ML IV SCH ×2 (00:08→23:01)
[2020-09-16] MEDS: LACTATED RINGER'S 1,000 ML IV SCH (00:08)
--- NOTE | 2020-09-16 05:39 | Electrocardiogram Report ---
Test Reason : Blood Pressure : / mmHG Vent. Rate : 076 BPM Atrial Rate : 076 BPM P-R Int : 120 ms QRS Dur : 144 ms QT Int : 436 ms P-R-T Axes : 044 -46 -05 degrees QTc Int : 490 ms Normal sinus rhythm Right bundle branch block Left anterior fascicular block Bifascicular block Minimal voltage criteria for LVH, may be normal variant Abnormal ECG When compared with ECG of 19-SEP-2009 01:10, Left anterior fascicular block is now Present Confirmed by Freddy Rosa ([id number]) on 09/16/2020 5:38:34 AM Referred By: REFERRED SELF Confirmed By:Freddy Rosa
--- NOTE | 2020-09-16 07:08 | Hospitalist Progress Note ---
Date of Service September 16, 2020 Assessment & Plan (1) COVID-19: 84yo C male presenting with 2-3 weeks of weakness/fatigue and SOB as well as loss of taste and smell. Patient's is in the ER with similar complaints and has tested positive for Covid-19. Patient's SARS-CoV-2 rapid antigen test as performed in the ER was found to be NEGATIVE. repeat covid flu and rsv pcr negative airborne precautions removed 09/16/20 * Bacterial pneumonia treated with O2, transition to prednisone continues on IV Ceftriaxone, & IV Azithromycin to complete 7 days -Supplemental O2 as needed to maintain saturation of 90% - patient with COPD -elevated inflammatory markers - ESR, CRP, Ferritin, Ddimer -normal Procalcitonin - -Azithromycin 500mg IV daily -Ceftriaxone 1gm IV daily CTA shows pneumonia but not PE (2) Chronic obstructive pulmonary disease: Patient had spirometry performed in 2009 which showed mild obstructive airway disease with slight improvement after bronchodilators -Combivent Respimat QID, added long acting b agonist and steroid plus spiriva, consider singluair overall may need oxygen at home -Flutter valve -Supplemental O2 as needed to maintain saturations 90% (3) Hypertension: Blood pressure controlled with Amlodipine 10mg po daily -restart Losartan/HCTZ -Continue Metoprolol 25mg po BID (4) Dyslipidemia: Chronic. -Continue Atorvastatin 40mg po daily (5) CAD (coronary artery disease): Chronic. ASA, Atorvastatin, Metoprolol -troponin negative x 2 (6) Diabetes mellitus: Chronic. Last [id number]=6.9 on 05/07/20. [id number] -Holding Metformin -ISS -BSG check qACHS (7) Anemia: Patient with normochromic, normocytic anemia with Hgb=9.7, Hct=28.9. No prior values available for comparison. - iron studies iron low tibc low maybe anemia of chronic disease will start some oral iron at time of discharge Ppx - Lovenox prophylactic as normal CTA Code - DNR/DNI per discussion with patient (8) Chronic kidney disease, stage 3: Admission and Anticipated Discharge Date Admission Date: September 15, 2020 Subjective pt has improving subjective symptoms, still with significant oxygen requirements, does have fpc smoking issues, CT was negative for PE and confirms pneumonia. Pt has life long tobacco use and likely has some chronic respiratory failure, this likely is impacting his oxygen need Review of Systems Review of Systems: Mild distress and fatigue no headache, blurry or double vision no speech or swallowing issues no chest pain, pressure or palpitations shortness of breath, non productive cough or wheezes no abdominal pain, nausea or vomiting, diarrhea or constipation no dysuria, hematuria or frequency no focal joint pain or swelling no back pain, CVA tenderness or radicular pain no bruising, bleeding or rashes no focal signs of weakness or numbness or altered sensation no complaints of anxiety or depression.. Physical Exam Physical Exam: The patient appeared thin and in mild distress Vital signs as documented. Head exam is normocephalic atraumatic no scleral icterus Neck is without JVD, thyromegaly, or carotid bruits. Lungs are clear to auscultation, no focal loss of breath sounds Cardiac exam, Rhythm is regular.. mónica Abdominal exam reveals normal bowel sounds, soft non tender, no masses Extremities are nonedematous and both pedal pulses are present Neurologic exam is alert and oriented, no focal loss of strength or sensation Skin is without bruises or rashes Psychologically is without concerns for anxiety or depression. Results & Data Results & Data ([facility]) Vital Signs (Past 12 Hours) Vital Signs Temp Pulse Resp BP Pulse Ox 09/16/20 05:38 44 L 93 09/16/20 00:14 97.5 F L 59 L 18 133/65 92 09/15/20 21:51 61 157/68 H 09/15/20 19:55 65 18 94 PG Care Time/CCT Total # of Minutes Spent Total Time Spent with Patient: Total time spent is greater than 50% in coordination of care (as documented) at patient's floor/unit and/or counseling patient: Coding Level of Care Code 71107 Subseq Hosp Care Lvl 3 Diagnoses COVID-19 U07.1 Chronic obstructive pulmonary disease J44.9 COPD type: unspecified COPD Hypertension I10 Hypertension type: essential hypertension Dyslipidemia E78.5 CAD (coronary artery disease) I25.10 Associated angina: without angina Coronary Disease-Associated Artery/Lesion type: [place] artery [place] vs. transplanted heart: [place] heart Diabetes mellitus E11.9 Diabetes mellitus complication status: without complication Diabetes mellitus fpc insulin use: without long term acute care registered nurse use Diabetes mellitus type: type 2 Anemia D64.9 Anemia type: unspecified type Chronic kidney disease, stage 3 N18.30 (1) Diabetes mellitus Diabetes mellitus complication status: without complication Diabetes mellitus fpc insulin use: without long term acute care registered nurse use Diabetes mellitus type: type 2 Qualified Code(s): E11.9 - Type 2 diabetes mellitus without complications (2) CAD (coronary artery disease) Associated angina: without angina Coronary Disease-Associated Artery/Lesion type: [place] artery [place] vs. transplanted heart: [place] heart Qualified Code(s): I25.10 - Atherosclerotic heart disease of [place] coronary artery without angina pectoris (3) Anemia Anemia type: unspecified type Qualified Code(s): D64.9 - Anemia, unspecified (4) Chronic obstructive pulmonary disease COPD type: unspecified COPD Qualified Code(s): J44.9 - Chronic obstructive pulmonary disease, unspecified (5) Hypertension Hypertension type: essential hypertension Qualified Code(s): I10 - Essential (primary) hypertension
[2020-09-16] MEDS: Albuterol HFA 8 GM Inhaler (Combivent Respimat P&T Subs) INH SCH (07:32)
[2020-09-16] MEDS: Ipratropium HFA Inhaler (Combivent Respimat P&T Subs) INH SCH (07:32)
[2020-09-16 08:56] LABS: Basophils # (auto) 0.01 K/uL (0-0.2); Basophils % (auto) 0.1 %; Hematocrit (blood only) 27.6 % (42-52); Hemoglobin 9.3 g/dL (14.0-18.0); Immature Granulocytes # (auto) 0.06 K/uL (0.00-0.02); Immature Granulocytes % (auto) 0.5 %; Lymphocytes # (auto) 0.99 K/uL (1.2-3.4); Lymphocytes % (auto) 7.9 %; Mean Corpuscular Hemoglobin 31.1 pg (25-34); Mean Corpuscular Hgb Conc 33.7 g/dL (32-36); Mean Corpuscular Volume 92.3 fL (80-100); Mean Platelet Volume 9.1 fL (7.4-10.4); Monocytes % (auto) 6.4 %; Neutrophils # (auto) 10.64 K/uL (1.4-6.5); Neutrophils % (auto) 85.1 %; Platelet Count 556 K/uL (130-400); RDW Coefficient of Variation 12.9 % (11.5-14.5); RDW Standard Deviation 43.5 fL (36.4-46.3); Red Blood Count 2.99 M/uL (4.7-6.1)
[2020-09-16] MEDS ORDERED: INSULIN HUMAN NPH SC SCH ×2 (09:00→09:32)
[2020-09-16] MEDS: INSULIN ASPART 100 UNITS/ML 3 ML PEN SC SCH ×4 (09:00→20:42)
[2020-09-16] MEDS: ENOXAPARIN INJ 30 MG/0.3 ML SYR SQ SCH (09:13)
[2020-09-16] MEDS: DEXAMETHASONE SOD PHOSPHATE 6 MG in SYRINGE 0 ML IV SCH (09:14)
[2020-09-16] MEDS: guaiFENesin 600 MG TABCR PO SCH ×2 (09:14→20:31)
[2020-09-16] MEDS: ASPIRIN 81 MG ECTAB PO SCH (09:14)
[2020-09-16] MEDS: ATORVASTATIN 40 MG TAB PO SCH (09:15)
[2020-09-16] MEDS: CHOLECALCIFEROL 1,000 UNITS 25 MCG TAB PO SCH (09:15)
[2020-09-16] MEDS: METOPROLOL SUCC 25MG EXT REL TAB PO SCH ×2 (09:15→20:39)
[2020-09-16] MEDS: amLODIPine BESYLATE 5 MG TAB PO SCH (09:15)
[2020-09-16 09:26] LABS: BUN Creatinine Ratio 22.4 (10-20); Calcium 8.6 mg/dl (8.5-10.1); Creatinine Clr Calc Pharmacy 33.5 ml/min; Est GFR (African American) 52.6; Est GFR (Non-African American) 45.4; Potassium 3.5 mmol/L (3.5-5.1)
[2020-09-16 09:41] LABS: Estimated Average Glucose 183 mg/dl
[2020-09-16] MEDS ORDERED: FLUTICASONE/VILANTEROL 100/25MCG 14 PUFFS/INHALER INH ONE (10:45)
--- NOTE | 2020-09-16 10:53 | Pharmacy Report ---
Pharmacy Glycemic Short Note 2 - Date of Service September 16, 2020 - Glycemic Short BSG Results (Last 24 hours): 09/15/20 09/15/20 09/15/20 11:09 16:30 20:53 Glucose POC Glucose 338 H* 179 H 92 09/16/20 09/16/20 09/16/20 07:46 09:11 10:25 Glucose 54 L POC Glucose 68 L* 170 H OUTPATIENT ANTIDIABETIC REGIMEN: * metformin 1000mg BID * A1c:6.9% 05/07/20 ASSESSMENT: 09/16 * BSGs trended down throughout the day yesterday (217, 338, 179, and 92 mg/dL) * Received 41 units of insulin (20 units of NPH and 21 units of prandial/correctional Novolog) * Continues on dexamethasone 6 mg IV daily * Fasting BSG of 68 mg/dL this morning * Will decrease NPH to 15 units today and hold off on any other basal insulin at this time 09/15 * Patient well controlled as an outpatient with metformin only now presenting with suspicions of COVID * Patient's BSG well into the 300s by time of consult. Will order a one time NPH dose now, and plan to continue daily NPH will on steroids. Will utilize an aggressive novolog scale. * Patient is ordered dexamethasone and is tolerating a diet PLAN FOR INPATIENT GLYCEMIC CONTROL: * Hold outpatient oral diabetes medications * Basal insulin * NPH 15 units SC daily w/ IV dexamethasone * Bolus insulin * NovoLog per scale ACHS or Q6hrs while NPO * Goal Range: Low 110 mg/dL - High 150 mg/dL * Correction Factor: 25 mg/dL/unit * Nutritional / Prandial insulin per carb ratio of 1 unit per 9 grams CHO consumed
[2020-09-16] MEDS: UMECLIDINIUM BROMIDE 62.5MCG/BLISTER 7 PUFFS/INHALER INH SCH (13:04)
[2020-09-16] MEDS: AZITHROMYCIN 500 MG in DEXTROSE 5% 250 ML IV SCH (20:31)
[2020-09-17] MEDS ORDERED: FLUTICASONE/VILANTEROL 200/25MCG 14 PUFFS/INHALER INH SCH (09:00)
[2020-09-17] MEDS: ENOXAPARIN INJ 30 MG/0.3 ML SYR SQ SCH (09:03)
[2020-09-17] MEDS: INSULIN ASPART 100 UNITS/ML 3 ML PEN SC SCH ×4 (09:03→21:23)
[2020-09-17] MEDS: FLUTICASONE/VILANTEROL 100/25MCG 14 PUFFS/INHALER INH SCH (09:04)
[2020-09-17] MEDS: UMECLIDINIUM BROMIDE 62.5MCG/BLISTER 7 PUFFS/INHALER INH SCH (09:04)
[2020-09-17] MEDS: guaiFENesin 600 MG TABCR PO SCH ×2 (09:05→20:19)
[2020-09-17] MEDS: ASPIRIN 81 MG ECTAB PO SCH (09:05)
[2020-09-17] MEDS: ATORVASTATIN 40 MG TAB PO SCH (09:05)
[2020-09-17] MEDS: CHOLECALCIFEROL 1,000 UNITS 25 MCG TAB PO SCH (09:05)
[2020-09-17] MEDS: amLODIPine BESYLATE 5 MG TAB PO SCH (09:05)
[2020-09-17] MEDS: METOPROLOL SUCC 25MG EXT REL TAB PO SCH ×2 (09:05→20:22)
[2020-09-17] MEDS: predniSONE 20 MG TAB PO SCH (09:06)
[2020-09-17] MEDS ORDERED: INSULIN HUMAN NPH SC SCH (11:30)
--- NOTE | 2020-09-17 13:23 | Pharmacy Report ---
Pharmacy Glycemic Short Note 2 - Date of Service September 17, 2020 - Glycemic Short BSG Results (Last 24 hours): 09/16/20 09/16/20 09/17/20 17:05 20:35 08:24 POC Glucose 146 H 164 H 114 H 09/17/20 11:51 POC Glucose 185 H OUTPATIENT ANTIDIABETIC REGIMEN: * metformin 1000mg BID * A1c:6.9% 05/07/20 ASSESSMENT: 09/17 * Patient is currently receiving 27 units of insulin per day * 15 units of basal insulin * 12 units of prandial/correctional insulin * BSGs ranging 114 - 185 over the past 24hrs * Risk factors for insulin resistance are decreasing * Steroid dosing tapering; dexamethasone 6mg IV changed to prednisone 40mg PO daily * Will taper insulin with step down in steroid dosing. Will continue reduced dosing of NPH with once daily prednisone. * NPH insulin is used to counteract the hyperglycemic effect of prednisone. The rationale for this approach is that the pharmacodynamics profile of NPH, with a peak effect of 4-8hrs and duration of action of 12-16hrs, mirrors the pharmacodynamics of prednisone. NPH should be dosed at the same time that prednisone is given 09/16 * BSGs trended down throughout the day yesterday (217, 338, 179, and 92 mg/dL) * Received 41 units of insulin (20 units of NPH and 21 units of prandial/correctional Novolog) * Continues on dexamethasone 6 mg IV daily * Fasting BSG of 68 mg/dL this morning * Will decrease NPH to 15 units today and hold off on any other basal insulin at this time 09/15 * Patient well controlled as an outpatient with metformin only now presenting with suspicions of COVID * Patient's BSG well into the 300s by time of consult. Will order a one time NPH dose now, and plan to continue daily NPH will on steroids. Will utilize an aggressive novolog scale. * Patient is ordered dexamethasone and is tolerating a diet PLAN FOR INPATIENT GLYCEMIC CONTROL: * Hold outpatient oral diabetes medications * Basal insulin * NPH 10 units SC daily w/ PO prednisone * Bolus insulin * NovoLog per scale ACHS or Q6hrs while NPO * Goal Range: Low 110 mg/dL - High 150 mg/dL * Correction Factor: 25 mg/dL/unit * Nutritional / Prandial insulin per carb ratio of 1 unit per 9 grams CHO consumed
--- NOTE | 2020-09-17 19:01 | Hospitalist Progress Note ---
Date of Service September 17, 2020 Assessment & Plan (1) COVID-19: 84yo C male presenting with 2-3 weeks of weakness/fatigue and SOB as well as loss of taste and smell. Patient's is in the ER with similar complaints and has tested positive for Covid-19. Patient's SARS-CoV-2 rapid antigen test as performed in the ER was found to be NEGATIVE. repeat covid flu and rsv pcr negative airborne precautions removed 09/16/20 * Bacterial pneumonia treated with O2, transition to prednisone continues on IV Ceftriaxone, & IV Azithromycin to complete 7 days -Supplemental O2 as needed to maintain saturation of 90% - patient with COPD -elevated inflammatory markers - ESR, CRP, Ferritin, Ddimer -normal Procalcitonin - -Azithromycin 500mg IV daily -Ceftriaxone 1gm IV daily CTA shows pneumonia but not PE (2) Chronic obstructive pulmonary disease: Patient had spirometry performed in 2009 which showed mild obstructive airway disease with slight improvement after bronchodilators -Combivent Respimat QID, added long acting b agonist and steroid plus spiriva, consider singluair overall may need oxygen at home -Flutter valve -Supplemental O2 as needed to maintain saturations 90% (3) Hypertension: Blood pressure controlled with Amlodipine 10mg po daily -restart Losartan/HCTZ -Continue Metoprolol 25mg po BID (4) Dyslipidemia: Chronic. -Continue Atorvastatin 40mg po daily (5) CAD (coronary artery disease): Chronic. ASA, Atorvastatin, Metoprolol -troponin negative x 2 (6) Diabetes mellitus: Chronic. Last PjqW5Q=9.9 on 05/07/20. Eyzaxqu=497 -Holding Metformin -ISS -BSG check qACHS (7) Anemia: Patient with normochromic, normocytic anemia with Hgb=9.7, Hct=28.9. No prior values available for comparison. - iron studies iron low tibc low maybe anemia of chronic disease will give venofer and start some oral iron at time of discharge Ppx - Lovenox prophylactic as normal CTA Code - DNR/DNI per discussion with patient (8) Chronic kidney disease, stage 3: Admission and Anticipated Discharge Date Admission Date: September 15, 2020 Subjective pt continues to improve, still hypoxic, CT was negative for PE and confirmed pneumonia. Pt has life long tobacco use and likely has some chronic respiratory failure, this likely is impacting his oxygen need Review of Systems Review of Systems: Mild distress and fatigue no headache, blurry or double vision no speech or swallowing issues no chest pain, pressure or palpitations shortness of breath, non productive cough or wheezes no abdominal pain, nausea or vomiting, diarrhea or constipation no dysuria, hematuria or frequency no focal joint pain or swelling no back pain, CVA tenderness or radicular pain no bruising, bleeding or rashes no focal signs of weakness or numbness or altered sensation no complaints of anxiety or depression.. Physical Exam Physical Exam: The patient appeared thin and in mild distress Vital signs as documented. Head exam is normocephalic atraumatic no scleral icterus Neck is without JVD, thyromegaly, or carotid bruits. Lungs are clear to auscultation, no focal loss of breath sounds Cardiac exam, Rhythm is regular.. mónica Abdominal exam reveals normal bowel sounds, soft non tender, no masses Extremities are nonedematous and both pedal pulses are present Neurologic exam is alert and oriented, no focal loss of strength or sensation Skin is without bruises or rashes Psychologically is without concerns for anxiety or depression. Results & Data Results & Data ([facility]) Vital Signs (Past 12 Hours) Vital Signs Temp Pulse Resp BP Pulse Ox 09/17/20 15:28 98.2 F 55 L 16 112/45 L 93 09/17/20 07:58 97.7 F 54 L 20 146/63 H 92 PG Care Time/CCT Total # of Minutes Spent Total Time Spent with Patient: Total time spent is greater than 50% in coordination of care (as documented) at patient's floor/unit and/or counseling patient: Coding Level of Care Code 85427 Subseq Hosp Care Lvl 3 Diagnoses COVID-19 U07.1 Chronic obstructive pulmonary disease J44.9 COPD type: unspecified COPD Hypertension I10 Hypertension type: essential hypertension Dyslipidemia E78.5 CAD (coronary artery disease) I25.10 Coronary Disease-Associated Artery/Lesion type: [place] artery [place] vs. transplanted heart: [place] heart Associated angina: without angina Diabetes mellitus E11.9 Diabetes mellitus type: type 2 Diabetes mellitus usp insulin use: without usp use Diabetes mellitus complication status: without complication Anemia D64.9 Anemia type: unspecified type Chronic kidney disease, stage 3 N18.30 (1) Chronic obstructive pulmonary disease COPD type: unspecified COPD Qualified Code(s): J44.9 - Chronic obstructive pulmonary disease, unspecified (2) Hypertension Hypertension type: essential hypertension Qualified Code(s): I10 - Essential (primary) hypertension (3) CAD (coronary artery disease) Coronary Disease-Associated Artery/Lesion type: [place] artery [place] vs. transplanted heart: [place] heart Associated angina: without angina Qualified Code(s): I25.10 - Atherosclerotic heart disease of [place] coronary artery without angina pectoris (4) Diabetes mellitus Diabetes mellitus type: type 2 Diabetes mellitus manager intermediate insulin use: without manager intermediate use Diabetes mellitus complication status: without complication Qualified Code(s): E11.9 - Type 2 diabetes mellitus without complications (5) Anemia Anemia type: unspecified type Qualified Code(s): D64.9 - Anemia, unspecified
[2020-09-17] MEDS ORDERED: IRON SUCROSE 200 MG in 0.9 % SODIUM CHLORIDE 100 ML IV ONE (19:30)
[2020-09-17] MEDS: AZITHROMYCIN 500 MG in DEXTROSE 5% 250 ML IV SCH (20:21)
[2020-09-17] MEDS: cefTRIAXone SODIUM 1,000 MG in DEXTROSE 5% 50 ML IV SCH (22:38)
[2020-09-18] MEDS: ENOXAPARIN INJ 30 MG/0.3 ML SYR SQ SCH (08:45)
[2020-09-18] MEDS: INSULIN ASPART 100 UNITS/ML 3 ML PEN SC SCH ×4 (08:45→21:47)
[2020-09-18] MEDS: predniSONE 20 MG TAB PO SCH (08:46)
[2020-09-18] MEDS: UMECLIDINIUM BROMIDE 62.5MCG/BLISTER 7 PUFFS/INHALER INH SCH (08:46)
[2020-09-18] MEDS: METOPROLOL SUCC 25MG EXT REL TAB PO SCH ×2 (08:48→20:38)
[2020-09-18] MEDS: guaiFENesin 600 MG TABCR PO SCH ×2 (08:48→20:37)
[2020-09-18] MEDS: ATORVASTATIN 40 MG TAB PO SCH (08:48)
[2020-09-18] MEDS: ASPIRIN 81 MG ECTAB PO SCH (08:49)
[2020-09-18] MEDS: FLUTICASONE/VILANTEROL 100/25MCG 14 PUFFS/INHALER INH SCH (08:49)
[2020-09-18] MEDS: amLODIPine BESYLATE 5 MG TAB PO SCH (08:49)
[2020-09-18] MEDS: CHOLECALCIFEROL 1,000 UNITS 25 MCG TAB PO SCH (08:49)
[2020-09-18] MEDS: INSULIN HUMAN NPH SC SCH (08:51)
[2020-09-18] MEDS ORDERED: INSULIN HUMAN NPH SC SCH (09:00)
--- NOTE | 2020-09-18 09:53 | Pharmacy Report ---
Pharmacy Glycemic Short Note 2 - Date of Service September 18, 2020 - Glycemic Short BSG Results (Last 24 hours): 09/17/20 09/17/20 09/17/20 11:51 17:44 21:07 POC Glucose 185 H 185 H 279 H 09/18/20 07:50 POC Glucose 74 OUTPATIENT ANTIDIABETIC REGIMEN: * metformin 1000mg BID * A1c:6.9% 05/07/20 ASSESSMENT: 09/18: * Patient is currently receiving 35 units of insulin per day * 10 units of basal insulin * 25 units of prandial/correctional insulin * BSGs ranging 74 - 279 over the past 24hrs * BSGs slightly elevated secondary to prednisone; NPH ordered and given late yesterday (about 2 hrs after prednisone was already given). Will not increase NPH today since it was just given late yesterday. Will instead just tighten CR slightly and titrate based on BSG trends. 09/17 * Patient is currently receiving 27 units of insulin per day * 15 units of basal insulin * 12 units of prandial/correctional insulin * BSGs ranging 114 - 185 over the past 24hrs * Risk factors for insulin resistance are decreasing * Steroid dosing tapering; dexamethasone 6mg IV changed to prednisone 40mg PO daily * Will taper insulin with step down in steroid dosing. Will continue reduced dosing of NPH with once daily prednisone. * NPH insulin is used to counteract the hyperglycemic effect of prednisone. The rationale for this approach is that the pharmacodynamics profile of NPH, with a peak effect of 4-8hrs and duration of action of 12-16hrs, mirrors the pharmacodynamics of prednisone. NPH should be dosed at the same time that prednisone is given 09/16 * BSGs trended down throughout the day yesterday (217, 338, 179, and 92 mg/dL) * Received 41 units of insulin (20 units of NPH and 21 units of prandial/correctional Novolog) * Continues on dexamethasone 6 mg IV daily * Fasting BSG of 68 mg/dL this morning * Will decrease NPH to 15 units today and hold off on any other basal insulin at this time 09/15 * Patient well controlled as an outpatient with metformin only now presenting with suspicions of COVID * Patient's BSG well into the 300s by time of consult. Will order a one time NPH dose now, and plan to continue daily NPH will on steroids. Will utilize an aggressive novolog scale. * Patient is ordered dexamethasone and is tolerating a diet PLAN FOR INPATIENT GLYCEMIC CONTROL: * Hold outpatient oral diabetes medications * Basal insulin * NPH 10 units SC daily w/ PO prednisone * Bolus insulin * NovoLog per scale ACHS or Q6hrs while NPO * Goal Range: Low 110 mg/dL - High 150 mg/dL * Correction Factor: 25 mg/dL/unit * Nutritional / Prandial insulin per carb ratio of 1 unit per 7 grams CHO consumed
--- NOTE | 2020-09-18 16:21 | Hospitalist Progress Note ---
Date of Service September 18, 2020 Assessment & Plan (1) Pneumonia: 84yo C male presenting with 2-3 weeks of weakness/fatigue and SOB as well as loss of taste and smell. Patient's is in the ER with similar complaints and has tested positive for Covid-19. Patient's SARS-CoV-2 rapid antigen test as performed in the ER was found to be NEGATIVE. repeat covid flu and rsv pcr negative airborne precautions removed 09/16/20 * Bacterial pneumonia treated with O2, transition to prednisone continues on IV Ceftriaxone, & IV Azithromycin 09/18 pt sounds more junky will add mucinex and chest physiotherapy concern for underlying copd pt will likely need 2 step and home oxygen -Supplemental O2 as needed to maintain saturation of 90% - patient with COPD -elevated inflammatory markers - ESR, CRP, Ferritin, Ddimer -normal Procalcitonin -Azithromycin 500mg daily -Ceftriaxone 1gm IV daily CTA shows pneumonia but not PE The pt's son requests that you contact his girfriend to nut picker pt at the time of discharge as he works during the day and many weekends Brian Reveles [phone] (2) Chronic obstructive pulmonary disease: Patient had spirometry performed in 2009 which showed mild obstructive airway disease with slight improvement after bronchodilators -Combivent Respimat QID, added long acting b agonist and steroid plus spiriva, consider singluair overall may need oxygen at home -Flutter valve, have chest physiotherapy -Supplemental O2 as needed to maintain saturations 90% (3) Hypertension: Blood pressure controlled with Amlodipine 10mg po daily - Losartan/HCTZ -Continue Metoprolol 25mg po BID (4) Dyslipidemia: Chronic. -Continue Atorvastatin 40mg po daily (5) CAD (coronary artery disease): Chronic. ASA, Atorvastatin, Metoprolol -troponin negative x 2 (6) Diabetes mellitus: Chronic. Last KyfY9C=1.9 on 05/07/20. Bafhtwk=005 -Holding Metformin -ISS -BSG check qACHS (7) Anemia: Patient with normochromic, normocytic anemia with Hgb=9.7, Hct=28.9. No prior values available for comparison. - iron studies iron low tibc low maybe anemia of chronic disease will give venofer and start some oral iron at time of discharge Ppx - Lovenox prophylactic as normal CTA Code - DNR/DNI per discussion with patient (8) Chronic kidney disease, stage 3: Admission and Anticipated Discharge Date Admission Date: September 15, 2020 Subjective pt continues to improve, still hypoxic, CT was negative for PE and confirmed pneumonia. Pt has life long tobacco use and likely has some chronic respiratory failure, this likely is impacting his oxygen need 09/18 his lungs sound like loose rhonchi, will attempt to expectorate Review of Systems Review of Systems: Mild distress and fatigue no headache, blurry or double vision no speech or swallowing issues no chest pain, pressure or palpitations shortness of breath, non productive cough or wheezes no abdominal pain, nausea or vomiting, diarrhea or constipation no dysuria, hematuria or frequency no focal joint pain or swelling no back pain, CVA tenderness or radicular pain no bruising, bleeding or rashes no focal signs of weakness or numbness or altered sensation no complaints of anxiety or depression.. Physical Exam Physical Exam: The patient appeared thin and in mild distress Vital signs as documented. Head exam is normocephalic atraumatic no scleral icterus Neck is without JVD, thyromegaly, or carotid bruits. Lungs are coarse rhonchi bilaterally will have chest physiotherapy and mucinex Cardiac exam, Rhythm is regular.. mónica Abdominal exam reveals normal bowel sounds, soft non tender, no masses Extremities are nonedematous and both pedal pulses are present Neurologic exam is alert and oriented, no focal loss of strength or sensation Skin is without bruises or rashes Psychologically is without concerns for anxiety or depression. Results & Data Results & Data ([facility]) Vital Signs (Past 12 Hours) Vital Signs Temp Pulse Resp BP Pulse Ox 09/18/20 15:40 97.7 F 52 L 18 154/60 H 91 09/18/20 07:37 97.7 F 72 20 173/58 H 90 PG Care Time/CCT Total # of Minutes Spent Total Time Spent with Patient: Total time spent is greater than 50% in coordination of care (as documented) at patient's floor/unit and/or counseling patient: Coding Level of Care Code 79642 Subseq Hosp Care Lvl 3 Diagnoses Pneumonia J18.9 Laterality: bilateral Lung location: unspecified part of lung Pneumonia type: due to unspecified organism Chronic obstructive pulmonary disease J44.9 COPD type: unspecified COPD Hypertension I10 Hypertension type: essential hypertension Dyslipidemia E78.5 CAD (coronary artery disease) I25.10 Coronary Disease-Associated Artery/Lesion type: [place] artery [place] vs. transplanted heart: [place] heart Associated angina: without angina Diabetes mellitus E11.9 Diabetes mellitus type: type 2 Diabetes mellitus manager long term care insulin use: without manager long term care use Diabetes mellitus complication status: without complication Anemia D64.9 Anemia type: unspecified type Chronic kidney disease, stage 3 N18.30 (1) Chronic obstructive pulmonary disease COPD type: unspecified COPD Qualified Code(s): J44.9 - Chronic obstructive pulmonary disease, unspecified (2) Hypertension Hypertension type: essential hypertension Qualified Code(s): I10 - Essential (primary) hypertension (3) CAD (coronary artery disease) Coronary Disease-Associated Artery/Lesion type: [place] artery [place] vs. transplanted heart: [place] heart Associated angina: without angina Qualified Code(s): I25.10 - Atherosclerotic heart disease of [place] coronary artery without angina pectoris (4) Diabetes mellitus Diabetes mellitus type: type 2 Diabetes mellitus manager long term care insulin use: without manager long term care use Diabetes mellitus complication status: without complication Qualified Code(s): E11.9 - Type 2 diabetes mellitus without complications (5) Anemia Anemia type: unspecified type Qualified Code(s): D64.9 - Anemia, unspecified (6) Pneumonia Laterality: bilateral Lung location: unspecified part of lung Pneumonia type: due to unspecified organism Qualified Code(s): J18.9 - Pneumonia, unspecified organism
[2020-09-18] MEDS ORDERED: guaiFENesin 600 MG TABCR PO SCH (21:00)
[2020-09-18] MEDS ORDERED: AZITHROMYCIN 250 MG TAB PO SCH (21:00)
[2020-09-18] MEDS: cefTRIAXone SODIUM 1,000 MG in DEXTROSE 5% 50 ML IV SCH (22:22)
[2020-09-19] MEDS: INSULIN ASPART 100 UNITS/ML 3 ML PEN SC SCH ×2 (08:50→12:57)
[2020-09-19] MEDS: INSULIN HUMAN NPH SC SCH (08:51)
[2020-09-19] MEDS: UMECLIDINIUM BROMIDE 62.5MCG/BLISTER 7 PUFFS/INHALER INH SCH (08:55)
[2020-09-19] MEDS: ENOXAPARIN INJ 30 MG/0.3 ML SYR SQ SCH (08:55)
[2020-09-19] MEDS: FLUTICASONE/VILANTEROL 100/25MCG 14 PUFFS/INHALER INH SCH (08:55)
[2020-09-19] MEDS: METOPROLOL SUCC 25MG EXT REL TAB PO SCH (08:57)
[2020-09-19] MEDS: guaiFENesin 600 MG TABCR PO SCH (08:57)
[2020-09-19] MEDS: amLODIPine BESYLATE 5 MG TAB PO SCH (08:58)
[2020-09-19] MEDS: ASPIRIN 81 MG ECTAB PO SCH (08:59)
[2020-09-19] MEDS: predniSONE 20 MG TAB PO SCH (08:59)
[2020-09-19] MEDS: ATORVASTATIN 40 MG TAB PO SCH (09:00)
[2020-09-19] MEDS: CHOLECALCIFEROL 1,000 UNITS 25 MCG TAB PO SCH (09:00)
--- NOTE | 2020-09-19 19:22 | Discharge Summary ---
Date of Service September 19, 2020 Admission HPI Per Admitting Provider Taras Stevens is an 84yo C male with history of CKD, HTN, HLP, GERD presenting with complaint of 2-3 weeks of progressive SOB as well as fatigue, loss of appetite and nausea. Patient also with loss of taste and smell. Symptoms ongoing for at least 2 weeks. No additional complaints at this time. Upon arrival to the ER patient was hypoxic at 86% on room air. He was placed on supplemental O2 with improvement in saturation - presently 97% on 4L Patient's is in the ER at this time as well with similar symptoms and has tested positive for Covid-19. Patient's rapid antigen test performed in the ER is NEGATIVE. ER Course: NSS x 500mL, Tylenol. He is ordered to receive Azithromycin 500mg po, Ceftriaxone 2gm IV, Magnesium x 1gm and Solumedrol 60mg IV Principal Diagnosis pneumonia presumed COPD hypoxic respiratory failure - definitely acute but possibly acute on chronic Discharge Exam gen aaox3 pleasant nad heent nc at mmm lungs scattered rales and squeak throughout no dyspnea no accessory muscles good effort no focal neuro deficits CT chest reviewed Discharge Data Allergies Allergy/AdvReac Type Severity Reaction Status Date / Time No Known Allergies Allergy Unknown . Verified 09/04/20 09:51 Consultations 09/14/20 23:23 ED Decision to Admit Stat Ordered Studies 09/15/20 10:57 CT angio chest PE protocol Stat Hospital Course (1) Pneumonia: 84yo C male presenting with 2-3 weeks of weakness/fatigue and SOB as well as loss of taste and smell. Patient's is in the ER with similar complaints and has tested positive for Covid-19. Patient's SARS-CoV-2 rapid antigen test as performed in the ER was found to be NEGATIVE. repeat covid flu and rsv pcr negative airborne precautions removed 09/16/20 * Bacterial pneumonia treated with O2, and appearing to need home O2. finish course of abx (was on zithromax/rocephin - will finish w zithromax/cefdinir) -Supplemental O2 as needed to maintain saturation of 90% - patient with COPD -stable for home - see below (2) Chronic obstructive pulmonary disease: Patient had spirometry performed in 2009 which showed mild obstructive airway disease with slight improvement after bronchodilators suspect this is worse now has quit tobacco - quit smoking pipe on admission, cigarettes much longer ago -home O2 -LAMA/LABA/ICS on discharge as well as prn albuterol for sob/wheeze (3) Hypertension: BP up some but commesurate to situation. home on home meds (4) Dyslipidemia: Chronic. -Continue Atorvastatin 40mg po daily (5) CAD (coronary artery disease): Chronic. ASA, Atorvastatin, Metoprolol -troponin negative x 2 (6) Diabetes mellitus: Chronic. Last [id number]=2.9 on 05/07/20. home on home meds (7) Anemia: Patient with normochromic, normocytic anemia with Hgb=9.7, Hct=28.9. No prior values available for comparison. - iron studies iron low tibc low maybe anemia of chronic disease gave venofer - outpt f/u after discharge Ppx - Lovenox Code - DNR/DNI per discussion with patient by prior hospitalist stable for home on home O2 (8) Chronic kidney disease, stage 3: Total Time Total Time Spent Total Time Spent (In Minutes): >30 Discharge Plan Discharge Items Patient Disposition: Home - Home Health Services Reason For Visit: COVID-19,HYPOXIA Discharge Diagnosis: pneumonia Activity: Resume your previous activity Non-emergency contact: Primary Care Provider Call non-emergency contact if: you have any medication questions Follow-up/Referrals: Britney Orantes MD [Primary Care Provider] - Diet: Regular Addtl Attending Provider Instructions: pneumonia -certainly while you tested negative for COVID, our suspicions (with your having been sick with it) are that covid was "the spark that started the fire" and then you had a pneumonia "overgrowth" while your lungs were more compromised. fortunately this is getting better -we'll finish out a course of antibiotics with zithromax for 2 more days and cefdinir twice a day for 3 more days. your next dose of both will be at bedtime tonight COPD -certainly things appear quite consistent w COPD - we'd recommend at some point in the near future Dr Orantes gets you set up for what are called pulmonary function tests (essentially lung volume measurements) to truly define the COPD, but in the meantime, people usually do better with inhalers to help calm down the chronic inflammation in their lungs -spiriva (tiotropium) - this class of inhalers - called anticholinergics - tends to be the most important in managing COPD - it's a once a day inhalation whether you feel good/bad/or anything in between -symbicort (budesonide-formoterol) - this is a combination of two types of inhalers - a long acting beta agonist and an inhaled steroid) - this you'll take twice a day every day - and just make sure to rinse your mouth out in between since the steroid can lead to getting thrush (a yeast overgrowth on your tongue) -- again this is one to take whether you're feeling good/bad/or anything else -albuterol - this is the one inhaler that's a "rescue inhaler" - this is the one that you would only take if you feel like you need it // if you feel tight/short of breath/wheezy -prednisone - we'll have you take a tapering course of prednisone to help your lungs stay settled as you get better from all of the above - you'll take 40mg (4 pills) tomorrow, then 30mg (3 pills) for two days, then 20mg (2 pills) for 2 days, then 10mg (1 pill) for two days, then you can stop it. oxygen -your numbers show us that at least for now, you need oxygen all the time. this is pretty common when someone has COPD and then gets a pneumonia on top of it. your regular docs can follow how you're doing with this, and help you determine if you're improving enough that we can take the oxygen off - but at this time, you need it at a setting of 2L all the time -it can be helpful to get a pulse oximeter for home when you're on oxygen - this can help guide you as to how you're doing. ideally we'd see you at/above 90% all the time. if you see that you're below 90%, stop and take a break - if that doesn't get you over 90% then it would be time to get checked out. on the other side of things, if you're always well above 90% it might be a hint that you're improved enough that Dr Orantes can maybe help you get rid of the oxygen. Pending Studies at Discharge: No Stand-Alone Forms: [facility], Smoking Cessation Medications and DC Order Prescriptions: New azithromycin 250 mg Tablet 500 mg PO HS Qty: 2 RF: 0 Spiriva with HandiHaler 18 mcg capsule, w/inhalation device 1 cap inhalation DAILY Qty: 30 RF: 0 budesonide-formoterol [Symbicort] 80-4.5 mcg/actuation HFA aerosol inhaler 2 inh inhalation BID Qty: 10.2 RF: 0 cefdinir 300 mg capsule 300 mg PO BID Qty: 6 RF: 0 prednisone 10 mg tablet 10 mg PO UD Qty: 16 RF: 0 albuterol sulfate [Ventolin HFA] 90 mcg/actuation Hfa Aerosol Inhaler 2 puff inhalation Q4H PRN (Reason: shortness of breath or wheezing) Qty: 1 RF: 0 Continued metformin 1,000 mg tablet 1,000 mg PO BID Qty: 60 RF: 5 amlodipine 10 mg tablet 10 mg PO DAILY Qty: 30 RF: 5 metoprolol succinate 25 mg tablet extended release 24 hr 25 mg PO BID Qty: 60 RF: 5 atorvastatin 40 mg tablet 40 mg PO DAILY Qty: 30 RF: 3 aspirin 81 mg tablet 81 mg PO DAILY RF: 0 omeprazole 20 mg capsule,delayed release(DR/EC) 20 mg PO DAILY PRN (Reason: Acid Reflux) RF: 0 losartan-hydrochlorothiazide 100-25 mg tablet 1 tab PO DAILY Qty: 90 RF: 3 cholecalciferol (vitamin D3) 50 mcg (2,000 unit) capsule 2,000 units PO DAILY RF: 0 Discharge Orders: Discharge Order (Routine); Ordered 09/19/20 Ordered By: Keron Edmonds/Other Patient Handouts: High Blood Sugar (Hyperglycemia), Managing Type 2 Diabetes, Diabetes: Sick-Day Plan Admission Data Admit Date/Time: 09/15/20 00:32 Attending Provider: Keron Boone Admit Provider: Giulia Vargas Primary Care Provider: Britney Orantes Other Providers: Giulia Vagras ; Yovani Harvey Other Interventions: Discharge Summary Assessment (RN) Last Done: 09/19/20 15:50 Coding Level of Care Code D/C Day Management >30 mins Diagnoses Pneumonia J18.9 Laterality: bilateral Lung location: unspecified part of lung Pneumonia type: due to unspecified organism Chronic obstructive pulmonary disease J44.9 COPD type: unspecified COPD Hypertension I10 Hypertension type: essential hypertension Dyslipidemia E78.5 CAD (coronary artery disease) I25.10 Coronary Disease-Associated Artery/Lesion type: [place] artery [place] vs. transplanted heart: [place] heart Associated angina: without angina Diabetes mellitus E11.9 Diabetes mellitus type: type 2 Diabetes mellitus alf insulin use: without alf use Diabetes mellitus complication status: without complication Anemia D64.9 Anemia type: unspecified type Chronic kidney disease, stage 3 N18.30
== END 2020-09-19 17:33 | disposition home or self-care (01) | DRG 193 ==
LOC: ED 20:41 → SUATTDRO 09-15 00:32 → EDINP 09-15 00:32 → 3W 09-15 12:45

== ENCOUNTER 2025-09-29 11:35 | Observation (INO) ==
--- NOTE | 2025-09-29 12:33 | Emergency Department Note ---
History of Present Illness General Chief complaint: Infection Stated complaint: INFECTION, DOC REFERED Time Seen by Provider: 09/29/25 12:09 History of Present Illness Maximum Pain Intensity: 7 This is an 89-year-old male who presents to the emergency department referred by PCP with complaints of "right arm infection". The patient notes that on September 25, 2025 he was playing with his son's 2 dogs. He states that the 1 dog came up to him and the right arm was near the mouth area and he withdrew his right forearm causing the tooth to cut into the integument causing a wound. No true bite. He also struck the dorsum of the right hand against a chair. He notes progressive erythema and edema to the right upper extremity since that time. No fevers or chills. No nausea or vomiting. No known drug allergies. He notes overall discomfort of the dorsum of the right hand, wrist and forearm area. Tetanus vaccine likely not up-to-date. Home Medications Medication Instructions Recorded Confirmed Type aspirin 81 mg tablet 81 mg PO DAILY 08/19/19 09/29/25 History cholecalciferol (vitamin D3) 50 2,000 units PO DAILY 02/28/20 09/29/25 History mcg (2,000 unit) capsule losartan 100 1 tab PO DAILY #90 tabs 06/30/22 09/29/25 Rx mg-hydrochlorothiazide 25 mg tablet clonidine HCl 0.1 mg tablet 0.1 mg PO BID #60 tabs 08/19/22 09/29/25 Rx amlodipine 10 mg tablet 10 mg PO DAILY #30 tabs 01/18/24 09/29/25 Rx atorvastatin 40 mg tablet 40 mg PO DAILY #30 tabs 01/18/24 09/29/25 Rx metformin 1,000 mg tablet 1,000 mg PO BID #60 tabs 01/18/24 09/29/25 Rx metoprolol succinate 25 mg 25 mg PO BID #90 tabs 01/18/24 09/29/25 Rx tablet,extended release 24 hr Allergies Allergy/AdvReac Type Severity Reaction Status Date / Time No Known Allergies Allergy Unknown . Verified 09/29/25 10:49 Past Med/Surg History Problem List (Updated 09/29/25 @ 22:00 by Regulo Angel PA-C) Cellulitis of right upper extremity (Acute) Uncontrolled hypertension Injury of right hand Cellulitis of right hand Prostate carcinoma Anxiety Encounter for examination following treatment at hospital Chronic kidney disease, stage 3 Pneumonia (Acute) COPD (chronic obstructive pulmonary disease) (Acute) Hypoxemia (Acute) Anemia Fever and chills Fatigue Cough Chronic cough Routine health maintenance Neuropathy, cervical Impacted cerumen of both ears Hypertension Elevated PSA (Chronic) Dyslipidemia (Chronic) Chronic reflux esophagitis Chronic obstructive pulmonary disease CAD (coronary artery disease) 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 @ cath 2009 BPH without urinary obstruction Diabetes mellitus (Chronic) Surgical History History of tonsillectomy History of cataract surgery (2016) Family History Family/Other Esophageal cancer Hypertension Laryngeal cancer Brother Prostate cancer Father Prostate cancer Denies family history of Ovarian cancer Myocardial infarction Breast cancer Colorectal cancer Social History Smoking Status: Current every day smoker Tobacco Type: Pipe Second Hand Exposure: No; Do You Dip or Chew Tobacco: No; Tobacco Cessation Education Requested by Patient: No Hx Alcohol Use: No Hx Substance Use: No Preferred Language: Greenlandic Communication Ability: Effective Hub Borer Required: No Beliefs That Will Affect Care: None marital status: Current Living Situation: Spouse current occupational status: retired Other Information That Helps Us Care for You: No Feels Safe at Home: Yes Safety Concerns: Feels Safe At This Time caffeine: Yes Dental Care, Regularly: No Physical Activity Frequency: Does not Exercise Seatbelt Use: always Sunscreen Use: No Assistive Devices: Denture - Upper, Denture - Lower and Glasses Review of Systems A total of 10 systems reviewed and were otherwise negative Physical Exam Vital Signs Vital Signs - 24 hr 09/29/25 11:36 09/29/25 11:37 09/29/25 14:32 Temperature 36.7 C 36.2 C L Temperature Source Oral Temporal Artery Scan Pulse Rate 90 Pulse Rate [Left Brachial] 88 69 Pulse Rhythm [Left Brachial] Regular Pulse Strength [Left Brachial] Normal Respiratory Rate 18 18 18 Respiratory Effort / Characteristics Non-Labored Non-Labored Spontaneous Non-Labored Spontaneous Respiratory Depth Normal Normal Normal Respiratory Pattern Regular Regular Blood Pressure 222/99 H Blood Pressure [Left Arm] 214/108 H 192/91 H Blood Pressure Mean 140 Blood Pressure Mean [Left Arm] 143 124 Blood Pressure Position [Left Arm] Sitting Sitting Pulse Oximetry 95 94 93 Oxygen Delivery Method Room Air Room Air Room Air Sepsis Recent Fever Within 48 Hours No Sepsis New/Unexplained Change in Mental Status N/A Sepsis Action Taken by Nursing No Action Required VITAL SIGNS - Vital signs and nursing notes were reviewed. Stable and afebrile. GENERAL -89-year-old male appearing his stated age who is in no acute distress. Communicates well with provider and answers questions appropriately. SKIN -diffuse erythema overlying the dorsal aspect of the right mid/distal forearm, wrist and hand. There is also lymphangitic streaking noted to the ventral forearm area tracking towards the ventral crease of the right elbow. There is no crepitus. There is a small wound to the dorsum of the left mid/distal forearm with overlying bandage. No purulence or crepitus. No deep laceration. HEAD - NC/AT. LUNGS - Chest wall symmetric without accessory muscle use, intercostals retractions, or central cyanosis. Normal vesicular breath sounds CTA B/L. No wheezes, rales, or rhonchi appreciated. CARDIAC - RRR EXTREMITIES - +5/5 strength noted in UE/LE bilaterally. Skin as above. Patient slow to make a fist with digits of the right hand. Cap refill within normal limits of each digit. Right radial pulse intact. No fluctuance or crepitus. NEUROLOGIC -sensory intact throughout the right upper extremity without deficit PSYCH -alert, oriented and pleasant on exam. Course Administered Medications Ampicillin Sodium/Sulbactam Sodium (Unasyn) 3,000 mg in 100 mls @ 200 mls/hr IV Q12 [facility] Stop: 10/06/25 21:59 Last Infusion: 09/29/25 22:20 Dose: Infused Documented By: Admin: 09/29/25 21:41 Dose: 200 mls/hr Documented By: MASON Insulin Aspart (Insulin Aspart Per Unit Charge) 0 units SC ACHS [facility] Stop: 10/29/25 16:29 Last Admin: 09/29/25 21:41 Dose: 3 units Documented By: MASON Co-signed By: HALLIE Admin: 09/29/25 18:21 Dose: Not Given Documented By: [facility] Discontinued Medications Diphtheria/Pertussis/Tetanus Vacc (Diphther/Tetan/Pertus Vaccine (Tdap, Adol/Adult) 0.5ml) 0.5 ml IM .ONCE ONE Stop: 09/29/25 12:34 Last Admin: 09/29/25 13:26 Dose: 0.5 ml Documented By: RAUL HCTZ/Losartan Potassium (Losartan/Hctz 50/12.5mg Tab) 2 tab PO NOW STA Stop: 09/29/25 15:04 Last Admin: 09/29/25 15:23 Dose: 2 tab Documented By: MATIAS Ampicillin Sodium/Sulbactam Sodium (Unasyn) 3,000 mg in 100 mls @ 200 mls/hr IV NOW STA Stop: 09/29/25 12:57 Last Infusion: 09/29/25 14:07 Dose: Infused Documented By: Admin: 09/29/25 13:27 Dose: 200 mls/hr Documented By: RAUL Metoprolol Succinate (Metoprolol Succ 50mg Ext Rel Tab) 50 mg PO NOW STA Stop: 09/29/25 15:04 Last Admin: 09/29/25 15:23 Dose: 50 mg Documented By: MATIAS Medical Decision Making Laboratory Data 09/29/25 12:58 09/29/25 12:58 Lab Results 09/29/25 Range/Units 12:58 WBC 13.54 H (4.8-10.8) K/ul RBC 4.13 L (4.70-6.10) M/uL Hgb 13.3 L (14.0-18.0) g/dL Hct 39.9 L (42.0-52.0) % MCV 96.6 (80.0-100.0) fL MCH 32.2 (25.0-34.0) pg MCHC 33.3 (32.0-36.0) g/dL RDW Std Deviation 43.9 (36.4-46.3) fL RDW Coeff of Dean 12.3 (11.5-14.5) % Plt Count 353 (130-400) K/uL MPV 9.1 L (9.4-12.4) fL Immature Gran % (Auto) 0.3 % Neut % (Auto) 86.8 % Lymph % (Auto) 6.5 % [place] % (Auto) 5.8 % Eos % (Auto) 0.1 % Baso % (Auto) 0.5 % Neut # (Auto) 11.74 H (1.40-6.50) K/uL Lymph # (Auto) 0.88 L (1.20-3.40) K/uL [place] # (Auto) 0.79 H (0.11-0.59) K/uL Eos # (Auto) 0.02 (0.00-0.50) K/uL Baso # (Auto) 0.07 (0.00-0.20) K/uL Immature Gran # (Auto) 0.04 (0.01-0.20) K/uL Sodium 139 (136-145) mmol/L Potassium 4.9 (3.5-5.1) mmol/L Chloride 105 (98-107) mmol/L Carbon Dioxide 29 (21-32) mmol/L Anion Gap 5 (3-11) BUN 23 (6-23) mg/dl Creatinine 1.72 H (0.6-1.4) mg/dl Est Cr Clr Drug Dosing 23.6 ml/min eGFR 37.76 BUN/Creatinine Ratio 13.4 (10-20) Glucose 97 (70-99(Fasting)) mg/dl Calcium 8.7 (8.6-10.3) mg/dl Total Bilirubin 0.6 (0.2-1.0) mg/dl AST 13 (13-39) U/L ALT 7 (7-52) U/L Alkaline Phosphatase 126 H (34-104) U/L Total Protein 6.7 (6.0-8.3) gm/dl Albumin 3.5 (3.4-5.0) gm/dl Globulin 3.2 (2.5-4.0) gm/dl Albumin/Globulin Ratio 1.1 (0.9-2) Procalcitonin 0.14 (0-0.5) ng/ml Imaging Data Radiologist's Impression: Forearm X-Ray 09/29/25 12:27 XR forearm RT 2V CLINICAL HISTORY: R arm cellulitis COMPARISON: None FINDINGS: No fracture or dislocation seen at the right forearm. No evidence of osteomyelitis seen. No radiopaque foreign body. IMPRESSION: No fracture seen. ACT 112: Negative or not required by law. Electronically signed by: Gagan Rodriguez M.D. 09/29/2025 1:37 PM Hand X-Ray 09/29/25 12:27 XR hand RT min 3V routine CLINICAL HISTORY: Struck R hand, pain COMPARISON: None FINDINGS: No fracture or dislocation seen the right hand. No significant degenerative change. IMPRESSION: No fracture seen. ACT 112: Negative or not required by law. Electronically signed by: Gagan Rodriguez M.D. 09/29/2025 1:38 PM MDM Narrative Patient was seen and evaluated as above in room B08. Review was performed of nursing notes and vital signs. I did review pertinent previous visits and patient history. After obtaining a thorough history and physical examination the above work up was performed. Patient presents to us today with progressive erythema to the right upper extremity. This is status post a tooth making a wound on the forearm. It is important at this is not presented as a true bite, rather it appears that the dog was playful, and the right forearm area caught the tooth of the dog when the patient withdrew the arm. He also struck the hand on a nearby object and x-rays of the right hand and forearm obtained and without fracture. IV access was established. Labs were drawn. He was medicated here with IV Unasyn for coverage of the suspected cellulitis secondary to exposure to dog saliva. No rabies concern at this time. Tetanus vaccine updated. Leukocytosis 13.54. Minor anemia with hemoglobin of 13.3. There is evidence of CKD with creatinine 1.72. Procalcitonin 0.14. The patient will benefit from further evaluation and management in the patient setting with intravenous antibiotics. Case discussed with the hospitalist service. Please refer to further documentation regarding his stay In the evaluation and treatment of this patient the following differential diagnoses were entertained: Cellulitis, fracture, necrotizing fasciitis, among others Impression & Plan Cellulitis of right upper extremity Discharge Plan Visit Data Chief Complaint: Infection Stated Complaint: INFECTION, DOC REFERED ED Provider: Barry Henning ED Midlevel Provider: Regulo Angel Discharge Problem: Cellulitis of right upper extremity Patient Disposition: Admitted As Inpatient Condition: Good Discharge Instructions Interventions: ED Discharge Assessment Last Done: 09/29/25 17:04 Addendum September 29, 2025 23:21 I was consulted by the Advanced Practice Provider and was substantively involved in the patient's visit.This includes aspects of the HPI, MDM, diagnostic interpretations, and disposition/plan. I discussed the case with the JENNIE and agree with the findings and plan as documented in JENNIE Bamat's note.
[2025-09-29] MEDS: DIPHTHER/TETAN/PERTUS Vaccine (Tdap, Adol/Adult) 0.5mL IM ONE (13:26)
[2025-09-29 13:27] LABS: Hematocrit (blood only) 39.9 % (42.0-52.0); Hemoglobin 13.3 g/dL (14.0-18.0); Immature Granulocytes # (auto) 0.04 K/uL (0.01-0.20); Immature Granulocytes % (auto) 0.3 %; Mean Corpuscular Hemoglobin 32.2 pg (25.0-34.0); Mean Corpuscular Volume 96.6 fL (80.0-100.0); Platelet Count 353 K/uL (130-400); RDW Standard Deviation 43.9 fL (36.4-46.3); Red Blood Count 4.13 M/uL (4.70-6.10); White Blood Count 13.54 K/ul (4.8-10.8)
[2025-09-29] MEDS: AMPICILLIN/SULBACTAM SOD 3,000 MG/100 ML BAG IV STA (13:27)
--- NOTE | 2025-09-29 13:39 | XRay Report ---
XR forearm RT 2V CLINICAL HISTORY: R arm cellulitis COMPARISON: None FINDINGS: No fracture or dislocation seen at the right forearm. No evidence of osteomyelitis seen. N o radiopaque foreign body. IMPRESSION: No fracture seen. ACT 112: Negative or not required by law. Electronically signed by: Gagan Rodriguez M.D. 09/29/2025 1:37 PM
--- NOTE | 2025-09-29 13:40 | XRay Report ---
XR hand RT min 3V routine CLINICAL HISTORY: Struck R hand, pain COMPARISON: None FINDINGS: No fracture or dislocation seen the right hand. No significant degenerative change. IMPRESSION: No fracture seen. ACT 112: Negative or not required by law. Electronically signed by: Gagan Rodriguez M.D. 09/29/2025 1:38 PM
[2025-09-29 13:48] LABS: Alanine Aminotransferase 7.0 U/L (7-52); Albumin Globulin Ratio 1.1 (0.9-2); Albumin Level 3.5 gm/dl (3.4-5.0); Alkaline Phosphatase 126.0 U/L (34-104); Anion Gap 5.0 (3-11); Bilirubin,Total 0.6 mg/dl (0.2-1.0); Blood Urea Nitrogen 23.0 mg/dl (6-23); Calcium 8.7 mg/dl (8.6-10.3); Carbon Dioxide 29.0 mmol/L (21-32); Chloride 105.0 mmol/L (98-107); Creatinine Clr Calc Pharmacy 23.6 ml/min; Globulin 3.2 gm/dl (2.5-4.0); Glucose 97.0 mg/dl (70-99(Fasting)); Potassium 4.9 mmol/L (3.5-5.1); Sodium 139.0 mmol/L (136-145); Total Protein 6.7 gm/dl (6.0-8.3)
--- NOTE | 2025-09-29 15:00 | History & Physical Report ---
Date of Service September 29, 2025 Assessment & Plan (1) Cellulitis of right hand: (2) Hypertension: (3) Chronic kidney disease, stage 3: (4) Diabetes mellitus: Plan Taras is an 89-year-old male with a past medical history of hyperlipidemia, hypertension, CKD 3 and diabetes who presents to the hospital with concerns of right arm cellulitis. forearm and hand x-ray without evidence of foreign body or soft tissue gas. Admitted for IV antibiotics #Right arm cellulitisoccurring after open skin wound from dog tooth. No antibiotics prior to arrival. Mild leukocytosis (13.5), afebrile, negative procal. Continue Unasynif A1c is significantly elevated could consider adding Pseudomonas coverage if not improving Outline erythema, elevate extremity, ice Blood cultures pending AM CBC, BMP #Hypertension - with significant elevations, patient endorses not taking medications for the last 2-1/2 years. He is prescribed amlodipine 10 mg, clonidine 0.1 mg twice daily, losartanhydrochlorothiazide, metoprolol will resume losartanhydrochlorothiazide and metoprololmonitor blood pressure with these. I suspect viral to resume all of the medications he has been prescribed he would likely be hypotensive Will need updated prescription on discharge #CKD3 - has refused to see nephrology in the past Cr at baseline Avoid nephrotoxins - renally adjusted unasyn #Diabetes melitis type II Home medication metformin, unclear if he has been taking this AM A1c Sliding scale insulin coverage only monitoring BSG's #HLDcontinue statin and aspirin Dispo: Ops to med/surge DVT prophylaxis: Lovenox History of Present Illness Chief Complaint: cellulitis Primary Care Provider: Britney Orantes MD Taras is an 89-year-old male with a past medical history of hyperlipidemia, hypertension, CKD 3 and diabetes who presents to the hospital with concerns of right arm cellulitis. On 09/25 he was playing with a family member's dog and the tooth got caught and broke some skin, in the last 2 days he has noticed increased redness and decreased movement of his fingers. He was seen by his PCP this morning and sent to the ER, has not tried any outpatient antibiotics or interventions. He denies fevers chills or lack of appetite. He does endorse pain with palpation Also in the ER he was found to have significantly elevated blood pressuresupon review his blood pressure has been significantly elevated since 2021, he reports that he has not taken blood pressure medications in the last 2-1/2 years. he does endorse that there be a 90% chance likelihood that he continues a daily medication upon discharge from the hospital is present at bedside, he wishes to be a DNR/DNI. ED course: Tdap vaccine Unasyn x 1 Allergies Allergy/AdvReac Type Severity Reaction Status Date / Time No Known Allergies Allergy Unknown . Verified 09/29/25 10:49 Home Medications Medication Instructions Recorded Confirmed Type aspirin 81 mg tablet 81 mg PO DAILY 08/19/19 09/29/25 History cholecalciferol (vitamin D3) 50 2,000 units PO DAILY 02/28/20 09/29/25 History mcg (2,000 unit) capsule losartan 100 1 tab PO DAILY #90 tabs 06/30/22 09/29/25 Rx mg-hydrochlorothiazide 25 mg tablet clonidine HCl 0.1 mg tablet 0.1 mg PO BID #60 tabs 08/19/22 09/29/25 Rx amlodipine 10 mg tablet 10 mg PO DAILY #30 tabs 01/18/24 09/29/25 Rx atorvastatin 40 mg tablet 40 mg PO DAILY #30 tabs 01/18/24 09/29/25 Rx metformin 1,000 mg tablet 1,000 mg PO BID #60 tabs 01/18/24 09/29/25 Rx metoprolol succinate 25 mg 25 mg PO BID #90 tabs 01/18/24 09/29/25 Rx tablet,extended release 24 hr Past Med/Surg History Problem List (Updated 09/29/25 @ 11:11 by Britney Orantes MD) Uncontrolled hypertension Injury of right hand Cellulitis of right hand Prostate carcinoma Anxiety Encounter for examination following treatment at hospital Chronic kidney disease, stage 3 Pneumonia (Acute) COPD (chronic obstructive pulmonary disease) (Acute) Hypoxemia (Acute) Anemia Fever and chills Fatigue Cough Chronic cough Routine health maintenance Neuropathy, cervical Impacted cerumen of both ears Hypertension Elevated PSA (Chronic) Dyslipidemia (Chronic) Chronic reflux esophagitis Chronic obstructive pulmonary disease CAD (coronary artery disease) 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 @ cath 2009 BPH without urinary obstruction Diabetes mellitus (Chronic) Surgical History History of tonsillectomy History of cataract surgery (2016) Family History Family/Other Esophageal cancer Hypertension Laryngeal cancer Brother Prostate cancer Father Prostate cancer Denies family history of Ovarian cancer Myocardial infarction Breast cancer Colorectal cancer Social History Smoking Status: Current every day smoker Tobacco Type: Declines Do You Dip or Chew Tobacco: No; Hx Alcohol Use: No Hx Substance Use: No Preferred Language: Sammarinese Communication Ability: Effective Floor Finisher Required: No Beliefs That Will Affect Care: None marital status: Current Living Situation: Spouse current occupational status: retired Feels Safe at Home: Yes caffeine: Yes Dental Care, Regularly: No Physical Activity Frequency: Does not Exercise Seatbelt Use: always Sunscreen Use: No Assistive Devices: Glasses and Oxygen - Continuous Review of Systems Review of Systems: All systems reviewed & are unremarkable except as noted in Subjective Physical Exam Physical Exam: General: NAD, VS as above Resp: normal respiratory effort, lungs clear to auscultation CV: RRR, no murmur, Abd: normal bowel sounds, non tender, soft Extremities: signifcant erythema to right hand progressing to near the elbow, swelling worse over palm area. place of inital skin break with healing scab. palpable pulses, cap refil < 2 seconds, tender to palpation Neuro: A&O x3, Results & Data Results & Data Vital Signs (Past 12 Hours) Vital Signs Temp Pulse Pulse Resp BP BP Pulse Ox 09/29/25 14:32 69 18 192/91 H 93 09/29/25 11:37 97.2 F L 90 18 222/99 H 94 09/29/25 11:36 98.1 F 88 18 214/108 H 95 O2 Del Method 09/29/25 14:32 Room Air 09/29/25 11:37 Room Air 09/29/25 11:36 Room Air Laboratory Results cbc chemistry and procl reviewed Diagnostic Findings hand xray and forearm reviewed PG Care Time/CCT Total # of Minutes Spent Total Time Spent with Patient: Total time spent is greater than 50% in coordination of care (as documented) at patient's floor/unit and/or counseling patient: Coding Level of Care Code 13199 INT INP/OBS CARE 3/75MIN Diagnoses Cellulitis of right hand L03.113 Essential hypertension I10 Hypertension type: essential hypertension Stage 3 chronic kidney disease, unspecified whether stage 3a or 3b CKD N18.30 Chronic kidney disease stage 3 subtype: unspecified whether 3a or 3b Type 2 diabetes mellitus without complication, without long-term current use of insulin E11.9 Diabetes mellitus type: type 2 Diabetes mellitus watermelon harvesting supervisor insulin use: without fpc use Diabetes mellitus complication status: without complication (2) Hypertension Hypertension type: essential hypertension Qualified Code(s): I10 - Essential (primary) hypertension (3) Chronic kidney disease, stage 3 Chronic kidney disease stage 3 subtype: unspecified whether 3a or 3b Eliot lified Code(s): N18.30 - Chronic kidney disease, stage 3 unspecified (4) Diabetes mellitus Diabetes mellitus type: type 2 Diabetes mellitus watermelon harvesting supervisor insulin use: without watermelon harvesting supervisor use Diabetes mellitus complication status: without complication Qualified Code(s): E11.9 - Type 2 diabetes mellitus without complications
[2025-09-29] MEDS: LOSARTAN/HCTZ 50/12.5MG TAB PO STA (15:23)
[2025-09-29] MEDS: METOPROLOL SUCC 50MG EXT REL TAB PO STA (15:23)
[2025-09-29] MEDS ORDERED: CARBOHYDRATES FOR HYPOGLYCEMIA PO PRN (15:27)
[2025-09-29] MEDS ORDERED: ACETAMINOPHEN 500 MG TAB PO PRN (15:27)
[2025-09-29] MEDS ORDERED: GLUCAGON FOR INJ 1 MG VIAL SQ PRN (15:27)
[2025-09-29] MEDS ORDERED: GLUCOSE 10 TAB/TUBE PO PRN (15:27)
[2025-09-29] MEDS ORDERED: POLYETHYLENE (MIRALAX) 17 GM PACK PO PRN (15:27)
[2025-09-29] MEDS ORDERED: GLUCOSE 40% GEL 15 GM TUBE PO PRN (15:27)
[2025-09-29] MEDS ORDERED: ONDANSETRON INJ 2 MG/ML 2 ML VIAL IV PRN (15:27)
[2025-09-29] MEDS ORDERED: MELATONIN 3 MG TAB PO PRN (15:27)
[2025-09-29] MEDS ORDERED: DEXTROSE 50% 50 ML SYRINGE IV PRN (15:27)
[2025-09-29 18:18] VITALS: O2SAT 92
[2025-09-29] MEDS: INSULIN ASPART PER UNIT CHARGE SC SCH (18:21)
[2025-09-29] MEDS: AMPICILLIN/SULBACTAM SOD 3,000 MG/100 ML BAG IV SCH (21:41)
[2025-09-30 07:33] VITALS: BP 181/64; RESP 16; TEMP 98.4
[2025-09-30 07:59] LABS: Hematocrit (blood only) 36.5 % (42.0-52.0); Hemoglobin 12.3 g/dL (14.0-18.0); Immature Granulocytes # (auto) 0.04 K/uL (0.01-0.20); Immature Granulocytes % (auto) 0.4 %; Mean Corpuscular Hemoglobin 32.2 pg (25.0-34.0); Mean Corpuscular Volume 95.5 fL (80.0-100.0); Platelet Count 322 K/uL (130-400); RDW Standard Deviation 43.0 fL (36.4-46.3); Red Blood Count 3.82 M/uL (4.70-6.10); White Blood Count 10.17 K/ul (4.8-10.8)
[2025-09-30 08:35] LABS: Hemoglobin A1C 6.8 % (4.5-5.6)
[2025-09-30 08:37] LABS: Anion Gap 7.0 (3-11); Blood Urea Nitrogen 30.0 mg/dl (6-23); Calcium 8.1 mg/dl (8.6-10.3); Carbon Dioxide 27.0 mmol/L (21-32); Chloride 104.0 mmol/L (98-107); Creatinine Clr Calc Pharmacy 21.6 ml/min; Glucose 302.0 mg/dl (70-99(Fasting)); Potassium 5.0 mmol/L (3.5-5.1); Sodium 138.0 mmol/L (136-145)
[2025-09-30] MEDS ORDERED: METOPROLOL SUCC 50MG EXT REL TAB PO SCH (09:00)
[2025-09-30] MEDS: ATORVASTATIN 40 MG TAB PO SCH (09:02)
[2025-09-30] MEDS: ENOXAPARIN INJ 30 MG/0.3 ML SYR SQ SCH (09:02)
[2025-09-30] MEDS: ASPIRIN 81 MG ECTAB PO SCH (09:02)
[2025-09-30] MEDS: LOSARTAN/HCTZ 50/12.5MG TAB PO SCH (09:03)
[2025-09-30] MEDS: METOPROLOL SUCC 50MG EXT REL TAB PO SCH (09:03)
[2025-09-30] MEDS: LANTUS PER UNIT CHARGE SQ SCH (09:16)
--- NOTE | 2025-09-30 10:04 | Discharge Summary ---
Discharge Summary Date of Service September 30, 2025 Principal Dx & Hospital Course #1 = Principal Diagnosis (1) Cellulitis of right hand: (2) Hypertension: (3) Chronic kidney disease, stage 3: (4) Diabetes mellitus: Plan #Right arm cellulitis Taras is an 89-year-old male with a past medical history of hyperlipidemia, hypertension, CKD 3 and diabetes who presents to the hospital with concerns of right arm cellulitis. forearm and hand x-ray without evidence of foreign body or soft tissue gas. Occurred after open skin wound from dog tooth. Sent from PCP - no abx prior to arrival. Admitted for IV antibiotics - received Unasyn. Great improvement in ROM, pain and erythema. Leukocytosis has resolved. Continue Augmentin on discharge, ice and elevation. #Hypertension - with significant elevations, patient endorses not taking medications for the last 2-1/2 years. He is prescribed amlodipine 10 mg, clonidine 0.1 mg twice daily, losartanhydrochlorothiazide, metoprolol. Has never actually taken all of these in the past. Resumed losartanhydrochlorothiazide and metoprololmonitor blood pressure with these. BP improved, but not at goal, patient will take blood pressure at home, and defer to PCP for adding more medications as compliance has been an issue, and do not want patient to get hypotensive. #CKD3 - has refused to see nephrology in the past. Cr at baseline. Renally adjusted Unasyn/augmentin. #Diabetes melitis type II - A1c 6.8, reports has not been taking Metformin. This was represcribed, educated on importance of BSG control for wound healing. #HLDcontinue statin and aspirin Notes For Next Care Provider Medication Changes From Visit course of augmentin restarted metoprolol and lisinopril/HCTZ represcribed metformin Admission HPI Per Admitting Provider Taras is an 89-year-old male with a past medical history of hyperlipidemia, hypertension, CKD 3 and diabetes who presents to the hospital with concerns of right arm cellulitis. On 09/25 he was playing with a family member's dog and the tooth got caught and broke some skin, in the last 2 days he has noticed increased redness and decreased movement of his fingers. He was seen by his PCP this morning and sent to the ER, has not tried any outpatient antibiotics or interventions. He denies fevers chills or lack of appetite. He does endorse pain with palpation Also in the ER he was found to have significantly elevated blood pressuresupon review his blood pressure has been significantly elevated since 2021, he reports that he has not taken blood pressure medications in the last 2-1/2 years. he does endorse that there be a 90% chance likelihood that he continues a daily medication upon discharge from the hospital is present at bedside, he wishes to be a DNR/DNI. ED course: Tdap vaccine Unasyn x 1 Discharge Exam General: NAD, VS as above Resp: normal respiratory effort, lungs clear to auscultation CV: RRR, no murmur, Extremities: Moves all extremities, right arm with significant improvement in edema and erythema, ROM greatly improved. Cap refil < 2 seconds Neuro: A&O x3, Discharge Plan Discharge Items Patient Disposition: Home - Self-Care Reason For Visit: INFECTION, DOC REFERED Discharge Diagnosis: Cellulitis Condition on Discharge: Good Activity: Resume your previous activity Non-emergency contact: Primary Care Provider Call non-emergency contact if: you have any medication questions, your symptoms worsen, your pain is not controlled and your temperature is above 101 Follow-up/Referrals: Britney Orantes MD [Primary Care Provider] - 10/03/25 11:30 am (follow up within one week ) Diet: Carb Consistent or DM2 Addtl Attending Provider Instructions: Mr. Stevens, You were hospitalized after worsening infection of your right hand after getting caught on a dog tooth. This is much imporved with Ice, elevation and IV antibiotics. You will be continued on oral antibiotics for 9 more days, please take the whole course even if you well. As we discussed, controlling your chronic medical problems like your diabetes and high blood pressure are going to help with healing of this wound. FOR THE INFECTION: - Take Augmentin twice daily - first dose TONIGHT 09/30. Take with food, take the whole course even if improving - Continue to elevate the arm when able - Ice at least three times a day - Keep area clean and dry FOR YOUR HIGH BLOOD PRESSURE - You have been prescribed multiple medications over the years, we have restarted two of them with improvement of your blood pressure - Take Metoprolol and Linsinopril - HCTZ each morning - Please check your Blood pressure at home and keep a log, take this log to your next appointment at Dr. Orantes's office. - Being complaint with your medication will help this wound heal faster, it will also decrease your risk for heart attack and stroke. FOR YOUR DIABETES - You are HIGH risk for your wound NOT healing, if your blood sugars are elevated. - A prescription has been sent in for your Metformin, please take this twice a day. First dose TONIGHT 09/30 It will be helpful for you to keep your medications somewhere that you see them everyday and remember to take them. Some prefer to keep them by their toothbrush if they brush their teeth twice a day. Find a system that works for you to help with your compliance. Activity: You can do normal everyday activities as your body allows. Take rest breaks if you feel tired. Do not overexert. Stop activity if you have pain, shortness of breath or feel dizzy. Follow-up appointments: Make an appointment with your primary care physician within one week of discharge. A copy of this summary will be sent to them. Every time you see your primary care physician, or any other doctor, bring your medication list, and a list of questions. CONTACT YOUR PRIMARY CARE PROVIDER if you experience any of the following: Shortness of breath or difficulty breathing Fevers or chills Feeling tired with normal activity or experiencing dizziness or fainting Difficulty following your treatment plan, or difficulty taking medications CALL 911 OR GO TO THE EMERGENCY DEPARTMENT if you experience any of the following: Severe abdominal pain or nausea/vomiting Severe chest pain, or chest pain that radiates (moves) to your jaw or arm Sudden, severe shortness of breath or difficulty breathing Thank you for allowing us to participate in your care. Pending Studies at Discharge: Yes (blood cultures ) Stand-Alone Forms: My [facility], Smoking Cessation Medications and DC Order Prescriptions: Continued aspirin 81 mg tablet 81 mg PO DAILY cholecalciferol (vitamin D3) 50 mcg (2,000 unit) capsule 2,000 units PO DAILY losartan-hydrochlorothiazide 100-25 mg tablet 1 tab PO DAILY Qty: 30 0RF metformin 1,000 mg tablet 1,000 mg PO BID Qty: 60 0RF Hold Instructions: Provider's Order - discuss with PCP Discontinued amlodipine 10 mg tablet 10 mg PO DAILY Qty: 30 2RF metoprolol succinate 25 mg tablet extended release 24 hr 25 mg PO BID Qty: 90 2RF clonidine HCl 0.1 mg tablet 0.1 mg PO BID Qty: 60 5RF Rx Instructions: Take at bedtime No Action atorvastatin 40 mg Tablet 40 mg PO DAILY Qty: 30 0RF amlodipine 5 mg Tablet 5 mg PO QAM Qty: 30 0RF metoprolol succinate 25 mg Tablet Extended Release 24 Hr 25 mg PO QAM Qty: 30 0RF Discharge Orders: Discharge Order (Routine); Ordered 09/30/25 Ordered By: Indigo Edmonds/Other Patient Handouts: Cellulitis Dc, Hypertension Dc, Understanding Type 2 Diabetes, Blood Pressure Check Steps Admission Data Admit Date/Time: 09/29/25 14:57 Attending Provider: Karlo Galvan Admit Provider: Karlo Galvan Primary Care Provider: Britney Orantes Other Providers: Karlo Galvan Other Interventions: Discharge Summary Assessment (RN) Last Done: 09/30/25 10:42 Hospital Stay Data Consultations 09/29/25 13:59 ED Decision to Admit Stat Diagnostic Imagining Performed Forearm X-Ray 09/29/25 12:27 XR forearm RT 2V CLINICAL HISTORY: R arm cellulitis COMPARISON: None FINDINGS: No fracture or dislocation seen at the right forearm. No evidence of osteomyelitis seen. No radiopaque foreign body. IMPRESSION: No fracture seen. ACT 112: Negative or not required by law. Electronically signed by: Gagan Rodriguez M.D. 09/29/2025 1:37 PM Hand X-Ray 09/29/25 12:27 XR hand RT min 3V routine CLINICAL HISTORY: Struck R hand, pain COMPARISON: None FINDINGS: No fracture or dislocation seen the right hand. No significant degenerative change. IMPRESSION: No fracture seen. ACT 112: Negative or not required by law. Electronically signed by: Gagan Rodriguez M.D. 09/29/2025 1:38 PM Pending Results Patient Have Any Pending Studies at Discharge: Yes (blood cultures ) Discharge Instructions Given to Patient (Per Discharging Provider) Mr. Stevens, You were hospitalized after worsening infection of your right hand after getting caught on a dog tooth. This is much imporved with Ice, elevation and IV antibiotics. You will be continued on oral antibiotics for 9 more days, please take the whole course even if you well. As we discussed, controlling your chronic medical problems like your diabetes and high blood pressure are going to help with healing of this wound. FOR THE INFECTION: - Take Augmentin twice daily - first dose TONIGHT 09/30. Take with food, take the whole course even if improving - Continue to elevate the arm when able - Ice at least three times a day - Keep area clean and dry FOR YOUR HIGH BLOOD PRESSURE - You have been prescribed multiple medications over the years, we have restarted two of them with improvement of your blood pressure - Take Metoprolol and Linsinopril - HCTZ each morning - Please check your Blood pressure at home and keep a log, take this log to your next appointment at Dr. Orantes's office. - Being complaint with your medication will help this wound heal faster, it will also decrease your risk for heart attack and stroke. FOR YOUR DIABETES - You are HIGH risk for your wound NOT healing, if your blood sugars are elevated. - A prescription has been sent in for your Metformin, please take this twice a day. First dose TONIGHT 09/30 It will be helpful for you to keep your medications somewhere that you see them everyday and remember to take them. Some prefer to keep them by their toothbrush if they brush their teeth twice a day. Find a system that works for you to help with your compliance. Activity: You can do normal everyday activities as your body allows. Take rest breaks if you feel tired. Do not overexert. Stop activity if you have pain, shortness of breath or feel dizzy. Follow-up appointments: Make an appointment with your primary care physician within one week of discharge. A copy of this summary will be sent to them. Every time you see your primary care physician, or any other doctor, bring your medication list, and a list of questions. CONTACT YOUR PRIMARY CARE PROVIDER if you experience any of the following: Shortness of breath or difficulty breathing Fevers or chills Feeling tired with normal activity or experiencing dizziness or fainting Difficulty following your treatment plan, or difficulty taking medications CALL 911 OR GO TO THE EMERGENCY DEPARTMENT if you experience any of the following: Severe abdominal pain or nausea/vomiting Severe chest pain, or chest pain that radiates (moves) to your jaw or arm Sudden, severe shortness of breath or difficulty breathing Thank you for allowing us to participate in your care. Supervising Physician Co-Signing Physician Notes During face to face encounter, I obtained a brief physical examination, discussed hospital stay with patient and discharge instructions with patient. I discussed discharge plan of care with GISELE Bell. I reviewed above note and agree with it except for the following: Patient was admitted for cellulitis on his right arm cellulitis from a dog bite. Patient will be discharged on appropriate oral antibiotics as stated above. Total Time Total Time Spent Total Time Spent (In Minutes): Time spent day of discharge 33 minutes including direct patient care, medication reconciliation, documentation, review of labs and images, and coordination of care. Coding Level of Care Code 98567 INP/OBS DISCH >30 MIN Diagnoses Cellulitis of right hand L03.113 Essential hypertension I10 Hypertension type: essential hypertension Stage 3 chronic kidney disease, unspecified whether stage 3a or 3b CKD N18.30 Chronic kidney disease stage 3 subtype: unspecified whether 3a or 3b Type 2 diabetes mellitus without complication, without long-term current use of insulin E11.9 Diabetes mellitus complication status: without complication Diabetes mellitus intermediate insulin use: without intermediate use Diabetes mellitus type: type 2
[2025-09-30 10:44] VITALS: PULSE 58
[2025-10-03 02:49] LABS: A calco-baum cmplx NotReported Not Detected (NotDetected); Bact fragilis Not Reported Not Detected (NotDetected); Blood Culture Id Panel PCR Panel Negative (NotDetected); C auris Not Reported Not Detected (NotDetected); Calbicans Not Reported Not Detected (NotDetected); Candida glabrata Not Reported Not Detected (NotDetected); Candida krusei Not Reported Not Detected (NotDetected); Cneoformans/gatti Not Reported Not Detected (NotDetected); Cparapsilosis Not Reported Not Detected (NotDetected); Ctropicalis Not Reported Not Detected (NotDetected); E cloacae compx Not Reported Not Detected (NotDetected); Efaecalis Not Reported Not Detected (NotDetected); Efaecium Not Reported Not Detected (NotDetected); Enterobacterales Not Reported Not Detected (NotDetected); Escherichia coli Not Reported Not Detected (NotDetected); H influenzae Not Reported Not Detected (NotDetected); K aerogenes Not Reported Not Detected (NotDetected); Koxytoca Not Reported Not Detected (NotDetected); Kpneumoniae grp Not Reported Not Detected (NotDetected); Lmonocyt Not Reported Not Detected (NotDetected); N meningitidis Not Reported Not Detected (NotDetected); P aeruginosa Not Reported Not Detected (NotDetected); Proteus spp Not Reported Not Detected (NotDetected); Salmonella spp Not Reported Not Detected (NotDetected); Staph lugdunensis Not Reported Not Detected (NotDetected); Staph spp. Not Reported Not Detected (NotDetected); Staphaureus Not Reported Not Detected (NotDetected); Staphepi Not Reported Not Detected (NotDetected); Stenmaltophilia Not Reported Not Detected (NotDetected); Strep agal(GrpB) Not Reported Not Detected (NotDetected); Strep pneum Not Reported Not Detected (NotDetected); Strep pyog (GrpA) Not Reported Not Detected (NotDetected); Strep spp Not Reported Not Detected (NotDetected)
== END 2025-09-30 11:18 | disposition home or self-care (01) ==
LOC: ED 11:35 → EDINP 11:35 → 3W 17:25